=== PATIENT | female | born 1970 | race Caucasian/White ===

== ENCOUNTER → 2020-06-11 14:02 | Outpatient (BNVA) | payer BC, SELFPAY | PROVIDERS: PCP Internal Medicine; Visit Provider Internal Medicine Gastroenterology ==

== ENCOUNTER → 2020-12-06 10:09 | Outpatient (BNVA) | payer BC, SELFPAY | PROVIDERS: PCP Internal Medicine; Visit Provider Internal Medicine Gastroenterology ==

== ENCOUNTER 2020-12-13 08:20 | Outpatient (REF) | payer BC, SELFPAY ==
--- NOTE | ~2020-12-13 | MR_ITS ---
EXAMINATION: MR ABDOMEN WITHOUT AND WITH CONTRAST CLINICAL INFORMATION: History pancreatitis without necrosis. K85.90 COMPARISON: MR abdomen without and with contrast 02/23/2019 and 12/09/2018; ultrasound abdomen 05/15/2019; CT abdomen and pelvis with IV contrast 05/15/2019 and 11/26/2018. TECHNIQUE: MR abdomen was performed without and with use of 8 mL intravenous Gadavist gadolinium contrast. Postcontrast images are performed in multiphase dynamic sequences. Imaging was performed in 3 planes. FINDINGS: LUNG BASES: The visualized lung bases are unremarkable. LIVER, GALLBLADDER, AND BILIARY TREE: Liver is normal in size and smooth in contour. The parenchyma areas uniform in signal. There is some borderline decreased signal on out of phase imaging consistent with mild hepatic steatosis. There are approximately 4 subcentimeter cysts in the liver, similar to prior imaging. No enhancing lesion or lesion with delayed washout. The gallbladder is normal in size and shows no stone or sludge, wall thickening, or pericholecystic inflammatory changes. There is no intrahepatic or extrahepatic ductal dilatation. Common duct is unremarkable. PANCREAS: Normal in size and contour and signal. Normal enhancement. Pancreatic duct normal in caliber. No divisum. No mass or inflammatory changes. Small cyst suggested on prior MR exam no longer demonstrated. SPLEEN: Normal. ADRENAL GLANDS: Normal. KIDNEYS AND URETERS: The kidneys are normal in size, shape, and enhance symmetrically. No hydronephrosis. No perinephric stranding. GASTROINTESTINAL TRACT: No bowel obstruction. No ascites or fluid collection. ABDOMINAL WALL: No significant hernia is appreciated. LYMPH NODES: No lymphadenopathy. VASCULAR: Unremarkable. Abdominal aorta normal in caliber. Normal enhancement hepatic veins and portal vein and splenic vein. OSSEOUS STRUCTURES: Marrow signal normal. MR/MR abdomen wo/w con IMPRESSION: 1. Normal pancreas. No ductal dilatation or divisum. 2. No cholelithiasis or biliary ductal dilatation. 3. Borderline hepatic steatosis. Several subcentimeter cysts liver, stable.
== END 2020-12-13 08:21 | disposition home or self-care (01) ==
LOC: HO.MRI 08:20
PROVIDERS: Visit Provider Internal Medicine Gastroenterology
DX: K85.90 Acute pancreatitis without necrosis or infection, unspecified (principal)
CPT/HCPCS: 74183; A9585

== ENCOUNTER 2021-04-29 10:32 | Outpatient (REF) | payer BC, SELFPAY ==
[2021-04-29 11:09] LABS: MANUAL DIFF FLAG NO
[2021-04-29 11:34] LABS: Alanine Aminotransferase 22 U/L (0-31); Albumin Level 4.4 g/dL (3.5-5.0); Alkaline Phosphatase 67 U/L (39-117); Anion Gap 10 (12-20); Aspartate Amino Transferase 20 U/L (5-31); Bilirubin Total 0.6 mg/dL (0.0-1.0); Blood Urea Nitrogen 11 mg/dL (9-16); Calcium 9.4 mg/dL (8.4-10.2); Carbon Dioxide 28 mmol/L (22-29); Chloride 105 mmol/L (96-108); Estimated Glomerular Filt Rate > 60; Glucose Random 93 mg/dL (60-115); Lactate Dehydrogenase 137 U/L (122-220); Magnesium 2.3 mg/dL (1.6-2.6); Phosphorus 3.6 mg/dL (2.7-4.5); Potassium 4.4 mmol/L (3.3-5.1); Sodium 139 mmol/L (135-145); Total Protein 7.5 g/dL (6.5-8.0)
[2021-04-29 11:45] LABS: Vitamin D 25-OH Total 27.2 ng/mL (>30)
[2021-04-29 11:48] LABS: Basophils Percent Auto 0.6 % (0-2); Eosinophils Absolute Auto 0.2 X10*3/uL (0.0-0.4); Eosinophils Percent Auto 4.1 % (0-4); Hematocrit 41.1 % (37.0-47.0); Hemoglobin 13.5 g/dl (12.0-16.0); Imm Gran Abs Auto 0.02 X10*3/uL (0.00-0.03); Imm Gran Pct Auto 0.4 % (0.0-0.4); Lymphocytes Absolute Auto 1.4 X10*3/uL (1.2-4.9); Mean Corpuscular HGB Conc 32.8 g/dl (31.0-35.0); Mean Corpuscular Hemoglobin 30.1 pg (27.0-33.0); Mean Corpuscular Volume 91.7 fL (80.0-98.0); Mean Platelet Volume 10.3 fL (9.4-12.3); Monocytes Absolute Auto 0.4 X10*3/uL (0.1-1.2); Monocytes Percent Auto 7.8 % (2-11); Neutrophils Absolute Auto 2.9 x10*3/uL (2.0-8.3); Neutrophils Percent Auto 59.1 % (45-73); Platelet Count 313 X10*3/uL (160-400); Red Blood Count 4.48 X10*6/uL (4.20-5.50); White Blood Count 4.9 X10*3/uL (4.8-10.8)
[2021-04-29 12:01] LABS: Folate 14.4 ng/mL (> or = 4.0); Vitamin B12 774 pg/mL (200-900)
[2021-05-02 23:36] LABS: Zinc 74 mcg/dL (60-130)
[2021-05-03 10:32] LABS: Vitamin C 0.9 mg/dL (0.3-2.7)
[2021-05-03 15:25] LABS: Alpha-Tocopherol 17.2 mg/L (5.7-19.9); Beta-Gamma Tocopherol <1.0 mg/L (<=4.3)
[2021-05-03 17:26] LABS: Vitamin A 48 mcg/dL (38-98)
[2021-05-04 11:27] LABS: Vitamin B6 45.7 ng/mL (2.1-21.7)
[2021-05-05 17:57] LABS: Vitamin B5 (Pantothenic Acid) 112 ng/mL (<275)
[2021-05-06 13:41] LABS: Nicotinamide <20 ng/mL; Vit B3 - Nicotinic Acid <20 ng/mL
== END 2021-04-29 10:33 | disposition home or self-care (01) ==
LOC: HO.LAB 10:32
PROVIDERS: PCP Internal Medicine; Visit Provider Internal Medicine Gastroenterology
DX: K85.90 Acute pancreatitis without necrosis or infection, unspecified (principal); K90.9 Intestinal malabsorption, unspecified; K75.81 Nonalcoholic steatohepatitis (NASH)
CPT/HCPCS: 36415; 80053; 82180; 82306; 82550; 82607; 82746; 83615; 83735; 84100; 84207; 84446; 84590; 84591; 84630; 85025

== ENCOUNTER 2022-01-02 12:41 | Outpatient (REF) | payer BC, SELFPAY ==
--- NOTE | ~2022-01-02 | MR_ITS ---
EXAMINATION: MR ABDOMEN WITHOUT AND WITH CONTRAST CLINICAL INFORMATION: History of pancreatitis. COMPARISON: MR abdomen 12/13/2020 TECHNIQUE: MR abdomen was performed without and with use of 7.5 mL intravenous Gadavist gadolinium contrast. Postcontrast images are performed in multiphase dynamic sequences. Imaging was performed in 3 planes. FINDINGS: LUNG BASES: The visualized lung bases are unremarkable. LIVER, GALLBLADDER, AND BILIARY TREE: There is some degree of signal loss in the opposed phase dual echo images suggesting the presence of hepatic steatosis. The liver is otherwise normal in size and shape. There is redemonstration of several T2-bright avascular simple cysts, largest measuring 1.1 cm (102:22). No suspicious liver lesion. Normal gallbladder. No biliary ductal dilatation. PANCREAS: Homogeneously preserved T1-bright precontrast attenuation of the pancreas. No focal lesion. The main pancreatic duct is nondilated. No peripancreatic free fluid or fat stranding. SPLEEN: Normal. ADRENAL GLANDS: Normal. KIDNEYS AND URETERS: The kidneys are normal in size, shape, and enhance symmetrically. No hydronephrosis. No perinephric stranding. GASTROINTESTINAL TRACT: No bowel obstruction. No ascites or fluid collection. ABDOMINAL WALL: No significant hernia is appreciated. LYMPH NODES: No lymphadenopathy. VASCULAR: Unremarkable. OSSEOUS STRUCTURES: Marrow signal normal. MR/MR abdomen wo/w con IMPRESSION: Stable examination when compared to 12/13/2020 with redemonstration of borderline hepatic steatosis. Normal appearance of the pancreas.
== END 2022-01-02 12:42 | disposition home or self-care (01) ==
LOC: HO.MRI 12:41
PROVIDERS: Visit Provider Internal Medicine Gastroenterology
DX: K85.90 Acute pancreatitis without necrosis or infection, unspecified (principal)
CPT/HCPCS: 74183; A9585

== ENCOUNTER 2022-05-02 07:34 | Outpatient (REF) | payer BC, SELFPAY ==
[2022-05-02 08:11] LABS: MANUAL DIFF FLAG NO
[2022-05-02 08:25] LABS: Basophils Percent Auto 0.6 % (0-2); Eosinophils Absolute Auto 0.2 X10*3/uL (0.0-0.4); Eosinophils Percent Auto 2.3 % (0-4); Hematocrit 39.4 % (37.0-47.0); Hemoglobin 13.5 g/dl (12.0-16.0); Imm Gran Abs Auto 0.01 X10*3/uL (0.00-0.03); Imm Gran Pct Auto 0.2 % (0.0-0.4); Lymphocytes Absolute Auto 1.6 X10*3/uL (1.2-4.9); Lymphocytes Percent Auto 23.7 % (20-40); Mean Corpuscular HGB Conc 34.3 g/dl (31.0-35.0); Mean Corpuscular Hemoglobin 30.3 pg (27.0-33.0); Mean Corpuscular Volume 88.5 fL (80.0-98.0); Mean Platelet Volume 9.9 fL (9.4-12.3); Monocytes Absolute Auto 0.4 X10*3/uL (0.1-1.2); Monocytes Percent Auto 6.2 % (2-11); Neutrophils Absolute Auto 4.4 x10*3/uL (2.0-8.3); Platelet Count 306 X10*3/uL (160-400); Red Blood Count 4.45 X10*6/uL (4.20-5.50); Red Cell Distribution Width 11.9 % (11.0-16.0); White Blood Count 6.6 X10*3/uL (4.8-10.8)
[2022-05-02 09:16] LABS: Alanine Aminotransferase 19 U/L (0-31); Albumin Level 4.2 g/dL (3.5-5.0); Alkaline Phosphatase 63 U/L (39-117); Anion Gap 13 (12-20); Aspartate Amino Transferase 17 U/L (5-31); Bilirubin Total 0.5 mg/dL (0.0-1.0); Blood Urea Nitrogen 17 mg/dL (9-16); Calcium 9.6 mg/dL (8.4-10.2); Carbon Dioxide 29 mmol/L (22-29); Chloride 102 mmol/L (96-108); Cholesterol 233 mg/dL; Estimated Glomerular Filt Rate > 60; Ferritin 71 ng/mL (10-250); Glucose Random 91 mg/dL (60-115); HDL Cholesterol 40 mg/dL; Iron 74 mcg/dL (30-160); LDL Cholesterol Calculated 172 mg/dl; Magnesium 2.2 mg/dL (1.6-2.6); Percent Iron Saturation 25 % (15-50); Phosphorus 4.1 mg/dL (2.7-4.5); Potassium 4.5 mmol/L (3.3-5.1); Sodium 139 mmol/L (135-145); Total Iron Binding Capacity 293 mcg/dL (228-428); Total Protein 6.8 g/dL (6.5-8.0); Triglycerides 106 mg/dL; Unsaturated Iron Binding 219 ug/dL; Vitamin D 25-OH Total 97.2 ng/mL (>30)
[2022-05-02 09:54] LABS: Folate > 20.0 ng/mL (> or = 4.0); Vitamin B12 1216 pg/mL (200-900)
[2022-05-02 11:13] LABS: Reflex LDLD? No
[2022-05-05 11:44] LABS: Calcium, Ionized 5.3 mg/dL (4.8-5.6)
[2022-05-07 06:03] LABS: Zinc 93 mcg/dL (60-130)
[2022-05-07 06:13] LABS: Fecal Fat Qualitative Normal (Normal)
[2022-05-07 13:43] LABS: Vitamin K1 >2500 pg/mL (130-1500)
[2022-05-07 14:53] LABS: Vitamin B6 146.6 ng/mL (2.1-21.7)
[2022-05-07 16:53] LABS: Beta-Gamma Tocopherol <1.0 mg/L (<=4.3); Vitamin A 48 mcg/dL (38-98)
[2022-05-07 17:14] LABS: Nicotinamide 22 ng/mL; Vit B3 - Nicotinic Acid <20 ng/mL
[2022-05-07 17:29] LABS: Vitamin C 0.9 mg/dL (0.3-2.7)
[2022-05-07 22:19] LABS: Vitamin B5 (Pantothenic Acid) 144 ng/mL (<275)
[2022-05-08 15:48] LABS: Pancreatic Elastase-1 >500 mcg/g
[2022-05-09 04:48] LABS: Vitamin B1 37 nmol/L (8-30)
== END 2022-05-02 07:35 | disposition home or self-care (01) ==
LOC: HO.LAB 07:34
PROVIDERS: Visit Provider Internal Medicine Gastroenterology
DX: K90.9 Intestinal malabsorption, unspecified (principal); E83.52 Hypercalcemia; K85.90 Acute pancreatitis without necrosis or infection, unspecified; K75.81 Nonalcoholic steatohepatitis (NASH)
CPT/HCPCS: 36415; 80053; 80061; 82180; 82306; 82330; 82607; 82656; 82705; 82728; 82746; 83540; 83735; 84100; 84207; 84425; 84446; 84590; 84591; 84597; 84630; 85025

== ENCOUNTER 2022-07-02 09:28 | Day surgery (SDC) | payer BC, SELFPAY ==
--- NOTE | 2022-07-02 09:10 | HO.ANESPROP2 ---
HPI - Anesthesia Eval Consult details Narrative: 52 yr old female for colon svreen PMFSH Active Problems Active Problems: All Active Problems (Updated 05/09/21 @ 11:55 by Julee Pittman RN) Malabsorption (Acute) Raynaud disease (Acute) Pancreatitis (Acute) Past Medical History Medical History Anemia Arthritis Cat scratch fever Fatty liver GERD (gastroesophageal reflux disease) Hx of pancreatitis Snores Family History Family History Father Family history of high blood pressure Hx of heat stroke Mother Hx of congenital heart disease Family history of problems with anesthesia: No Surgical History Surgical History (Updated 06/26/22 @ 13:42 by Elba Olguin RN) History of colonoscopy Hx of dilation and curettage Hx of endoscopy Hx of hysterectomy Hx of rhinoplasty [place] teeth extracted History of Problems with Anesthesia: No Social History Social History Alcohol intake: never Substance Use Type: Marijuana Meds Allergies Allergy/AdvReac Type Severity Reaction Status Date / Time Penicillins [PENICILLINS] Allergy Mild ANAPHYLAXIS Verified 04/27/22 11:55 prochlorperazine Allergy Mild ANAPHYLAXIS Verified 04/27/22 11:55 [From COMPAZINE] Sulfa (Sulfonamide Allergy Mild PAIN,TACHYC Verified 04/27/22 11:55 Antibiotics) ARDIA [SULFA (SULFONAMIDE ANTIBIOTICS)] acetaminophen [From TYLENOL] Allergy Unknown HALLUCIANTI Verified 04/27/22 11:55 ONS fluconazole [From DIFLUCAN] Allergy Unknown HIVES/BREATHING Verified 04/27/22 11:55 DIFFICULTY dextromethorphan AdvReac Mild Headaches, Verified 04/27/22 11:55 [From Mucinex Cold,Flu,Sore itchy skin Throat] guaifenesin AdvReac Mild Headaches, Verified 04/27/22 11:55 [From Mucinex Cold,Flu,Sore itchy skin Throat] phenylephrine AdvReac Mild Headaches, Verified 04/27/22 11:55 [From Mucinex Cold,Flu,Sore itchy skin Throat] Active Medications: Current Medications Lactated Ringer's (Lr) 1,000 mls @ 50 mls/hr IVCONT .Q20H LCUHO Home Medications Medication Instructions Recorded Confirmed Last Taken Type loratadine 10 mg capsule (Claritin 10 mg PO DAILY 06/11/20 05/09/21 Unknown History Liqui-Gel) pyridoxine (vitamin B6) 25 mg 25 mg PO DAILY 06/11/20 05/09/21 Unknown History tablet dextroamphetamine-amphetamine 5 mg 1 tab PO BID 04/27/22 Unknown History tablet vitamin B complex (B 1 tab PO DAILY 04/27/22 Unknown History Complex-Vitamin B12 tablet) Exam Exam Date and Time: July 02, 2022 0910 Height,Weight and Vital Signs: Height 5 ft 11 in Airway Mallampati Class: II TM Dist: >3cm Neck ROM: Full Heart: rrr Lungs: cta Assessment and Plan Assessment Anesthesia Assessment: Anesthesia Plan Discussed and Chart Reviewed Final Anesthetic Review Family History of Problems with Anesthesia: No History of Problems with Anesthesia: No NPO: Yes ASA Class: III Final Preanesthetic Review: No Changes in Pt Med Stat, Meds/Allgs Chart Reviewed, Consent Obtained/Reviewed and Anes Risks/Benef Reviewed Patient Risk: Low Procedure Risk: Low Anesthetic Plan Anesthetic Plan: MAC: Disposition: Standard PACU
[2022-07-02 09:41] VITALS: BMI 22.6
[2022-07-02 09:47] VITALS: BP 105/62; PULSE 89; RESP 15; TEMP 36.6; O2SAT 97
--- NOTE | 2022-07-02 10:01 | MHC.SHP ---
Pre-Procedural Eval Section A Date of Service: 07/02/22 Section B Chief Complaint: hx of colon polyps Relevant Family History (Specify if Yes): No Relevant Social History: None Present Medications: see Short Stay Collaborative assessment Medical History: Significant History (Anemia Arthritis Cat scratch fever Fatty liver GERD (gastroesophageal reflux disease) Hx of pancreatitis Snores) History of Previous Operations: Relevant previous surgery/procedure and date(s) (History of colonoscopy Hx of dilation and curettage Hx of endoscopy Hx of hysterectomy Hx of rhinoplasty [place] teeth extracted) Allergies: Allergies Allergy/AdvReac Type Severity Reaction Status Date / Time Penicillins [PENICILLINS] Allergy Mild ANAPHYLAXIS Verified 07/02/22 09:37 prochlorperazine Allergy Mild ANAPHYLAXIS Verified 07/02/22 09:37 [From COMPAZINE] Sulfa (Sulfonamide Allergy Mild PAIN,TACHYC Verified 07/02/22 09:37 Antibiotics) ARDIA [SULFA (SULFONAMIDE ANTIBIOTICS)] acetaminophen [From TYLENOL] Allergy Unknown HALLUCIANTI Verified 07/02/22 09:37 ONS fluconazole [From DIFLUCAN] Allergy Unknown HIVES/BREATHING Verified 07/02/22 09:37 DIFFICULTY Review of Systems Sugical H&P ROS: Negative: Constitution, Cardiovascular, Respiratory, Neurological, Psychiatric, Hem-Onc, Allergic/Immunologic, Gastrointestinal, Genitourinary, Musculoskeletal, Integumentary, Endocrine and Eyes/Ears/Nose/Throat Exam Surgical H&P Exam: Normal: HEENT, Normal: Heart, Normal: Lungs, Normal: Extremities, Normal: Abdomen, Normal: Skin and Normal: Neurological Plan Diagnosis/Plan: Unchanged I have reviewed the history and physical and performed a pertinent physical examination on my patient. No changes have occurred unless specified. Time Spent With Patient Time: Total time managing care of this patient today ____ minutes.
[2022-07-02] MEDS: Lactated Ringers 1,000 ML 50 ML IVCONT (10:04)
--- NOTE | 2022-07-02 10:08 | P.OP_ITS ---
Operative Note Operative Note Date of Service: 07/02/22 Narrative: Operative Information Procedure Description: Colonoscopy Indication: hx of polyps Anesthesia: MAC COLONOSCOPY Instrument: Olympus variable stiffness pediatric scope 190L Colonoscopy Monitoring: Vital signs and clinical assessment, continuous EKG monitoring, Pulse oximetry, Carbon Dioxide monitoring and blood pressure monitoring were done throughout the procedure. Colon withdrawal time was 7 minutes. Procedure: The patient was placed in the left lateral decubitis position and pre-procedure medications were administered. After a digital rectal examination of the ano-rectum, the video colonoscope was inserted into the rectum and advanced through the colon to the cecum/TI. The colonoscope was slowly withdrawn in a retrograde panoramic fashion and the colon mucosa was carefully examined including a retroflexed view of the rectum. Findings and interventions are described below. Procedure Difficulty: easy Findings: Terminal Ileum-normal Cecum:normal Ascending Colon: normal Transverse Colon -normal Descending Colon:normal Sigmoid Colon: normal Rectum: Retroflexion with small internal hemorrhoids, grade I, mucosal edema noted, bx taken Anorectum - normal Colon preparation: [place] Bowel Preparation Scale Right colon; 2 Transverse colon: 3 Left colon; 3 (0 = Unprepared colon segment with mucosa not seen due to solid stool that cannot be cleared. 1 = Portion of mucosa of the colon segment seen, but other areas of the colon segment not well seen due to staining, residual stool and/or opaque liquid. 2 = Minor amount of residual staining, small fragments of stool and/or opaque liquid, but mucosa of colon segment seen well. 3 = Entire mucosa of colon segment seen well with no residual staining, small fragments of stool or opaque liquid) Impression and Post Procedure Diagnosis: rectal mucosa edema, may be due to prep artifact small internal hemorrhoids Plan: High fiber diet leaflet Avoid straining at stool, epsom salts and sitz bath, anusol supps or cream Repeat Colonoscopy in 5 years due to hx of polyps or earlier if clinically indicated Above findings were reviewed with the patient and relevant handouts were provided if indicated.
[2022-07-02 10:48] VITALS: BP 98/49; PULSE 69; RESP 17; O2SAT 100
[2022-07-02 11:03] VITALS: BP 99/61; PULSE 77; RESP 18; TEMP 36.3; O2SAT 98
== END 2022-07-02 11:30 | disposition home or self-care (01) ==
PROVIDERS: PCP Internal Medicine; Visit Provider Internal Medicine Gastroenterology
PROC: 0DJD8ZZ Inspection of Lower Intestinal Tract, Via Natural or Artificial Opening Endoscopic (ICD-10-PCS; CPT 45378; principal; 2022-07-02 10:40)
DX: Z12.11 Encounter for screening for malignant neoplasm of colon (principal); Z86.010 Personal history of colon polyps; K62.89 Other specified diseases of anus and rectum; K64.0 First degree hemorrhoids; K76.0 Fatty (change of) liver, not elsewhere classified; K90.9 Intestinal malabsorption, unspecified; K85.90 Acute pancreatitis without necrosis or infection, unspecified; K21.9 Gastro-esophageal reflux disease without esophagitis; D64.9 Anemia, unspecified; K44.9 Diaphragmatic hernia without obstruction or gangrene; M19.90 Unspecified osteoarthritis, unspecified site; A28.1 Cat-scratch disease; Z79.899 Other long term (current) drug therapy; Z88.0 Allergy status to penicillin; Z88.2 Allergy status to sulfonamides; Z88.8 Allergy status to other drugs, medicaments and biological substances
CPT/HCPCS: 45380; 88305

== ENCOUNTER → 2022-07-17 09:20 | Outpatient (BNVA) | payer BC, SELFPAY | PROVIDERS: PCP Internal Medicine; Visit Provider Internal Medicine Gastroenterology | DX: Z13.89 Encounter for screening for other disorder (principal) ==

== ENCOUNTER 2023-01-01 09:34 | Outpatient (REF) | payer BC, SELFPAY ==
[2023-01-01 11:25] LABS: MANUAL DIFF FLAG NO
[2023-01-01 11:51] LABS: Basophils Absolute Auto 0.1 X10*3/uL (0.0-0.2); Basophils Percent Auto 0.8 % (0-2); Eosinophils Absolute Auto 0.2 X10*3/uL (0.0-0.4); Eosinophils Percent Auto 2.7 % (0-4); Hematocrit 40.1 % (37.0-47.0); Hemoglobin 13.5 g/dl (12.0-16.0); Imm Gran Abs Auto 0.03 X10*3/uL (0.00-0.03); Imm Gran Pct Auto 0.5 % (0.0-0.4); Lymphocytes Absolute Auto 1.5 X10*3/uL (1.2-4.9); Lymphocytes Percent Auto 22.1 % (20-40); Mean Corpuscular HGB Conc 33.7 g/dl (31.0-35.0); Mean Corpuscular Hemoglobin 30.3 pg (27.0-33.0); Mean Corpuscular Volume 90.1 fL (80.0-98.0); Mean Platelet Volume 10.3 fL (9.4-12.3); Monocytes Absolute Auto 0.4 X10*3/uL (0.1-1.2); Monocytes Percent Auto 6.4 % (2-11); Neutrophils Absolute Auto 4.5 x10*3/uL (2.0-8.3); Neutrophils Percent Auto 67.5 % (45-73); Platelet Count 300 X10*3/uL (160-400); Red Blood Count 4.45 X10*6/uL (4.20-5.50); Red Cell Distribution Width 11.8 % (11.0-16.0); White Blood Count 6.6 X10*3/uL (4.8-10.8)
[2023-01-01 12:42] LABS: Alanine Aminotransferase 38 U/L (0-31); Albumin Level 4.2 g/dL (3.5-5.0); Alkaline Phosphatase 63 U/L (39-117); Anion Gap 10 (12-20); Aspartate Amino Transferase 21 U/L (5-31); Bilirubin Total 0.4 mg/dL (0.0-1.0); Blood Urea Nitrogen 17 mg/dL (9-16); Calcium 9.7 mg/dL (8.4-10.2); Carbon Dioxide 27 mmol/L (22-29); Chloride 105 mmol/L (96-108); Estimated Glomerular Filt Rate > 60; Glucose Random 95 mg/dL (60-115); Magnesium 2.3 mg/dL (1.6-2.6); Potassium 4.3 mmol/L (3.3-5.1); Sodium 138 mmol/L (135-145); Total Protein 7.3 g/dL (6.5-8.0)
[2023-01-01 12:45] LABS: Ferritin 100 ng/mL (10-250); Vitamin D 25-OH Total 55.7 ng/mL (>30)
[2023-01-01 13:53] LABS: Folate 11.9 ng/mL (> or = 4.0); Vitamin B12 1143 pg/mL (200-900)
[2023-01-05 09:08] LABS: Calcium, Ionized 5.2 mg/dL (4.7-5.5)
[2023-01-05 21:14] LABS: Zinc 70 mcg/dL (60-130)
[2023-01-06 15:24] LABS: Vitamin B6 62.9 ng/mL (2.1-21.7)
[2023-01-07 11:48] LABS: Nicotinamide 23 ng/mL; Vit B3 - Nicotinic Acid 26 ng/mL
[2023-01-07 14:34] LABS: Vitamin A 50 mcg/dL (38-98)
[2023-01-07 14:49] LABS: Vitamin B1 12 nmol/L (8-30)
[2023-01-07 17:28] LABS: Alpha-Tocopherol 15.6 mg/L (5.7-19.9); Beta-Gamma Tocopherol <1.0 mg/L (<=4.3)
[2023-01-07 19:20] LABS: Vitamin K1 404 pg/mL (130-1500)
== END 2023-01-01 09:35 | disposition home or self-care (01) ==
LOC: HO.LAB 09:34
PROVIDERS: PCP Internal Medicine; Visit Provider Internal Medicine Gastroenterology
DX: K75.81 Nonalcoholic steatohepatitis (NASH) (principal); K90.9 Intestinal malabsorption, unspecified; K85.90 Acute pancreatitis without necrosis or infection, unspecified; I73.00 Raynaud's syndrome without gangrene; E83.52 Hypercalcemia
CPT/HCPCS: 36415; 80053; 82180; 82306; 82330; 82607; 82728; 82746; 83735; 84207; 84425; 84446; 84590; 84591; 84597; 84630; 85025

== ENCOUNTER → 2023-01-01 09:34 | Outpatient (AMB) | payer BC, SELFPAY ==
[2023-01-01 09:38] VITALS: BP 115/56; PULSE 75; BMI 22.4
--- NOTE | 2023-01-01 09:38 | A.OFFVIS_ITS ---
Intake Vital Signs 01/01/23 09:38 Height 5 ft 11 in Weight 160 lb 14.999 oz BMI 22.4 BP 115/56 L Blood Pressure Location Lt brachial Position Sitting Pulse 75 Intake Visit Reasons: 6 month follow up Intake Note: Elizabeth presents in the office as a 6 month follow up. CC: She states that she is not having concerns just things that have been ongoing. Customer Program Manager Required: No Allergies Penicillins [PENICILLINS] Allergy (Mild, Verified 01/01/23 09:41) ANAPHYLAXIS prochlorperazine [From COMPAZINE] Allergy (Mild, Verified 01/01/23 09:41) ANAPHYLAXIS Sulfa (Sulfonamide Antibiotics) [SULFA (SULFONAMIDE ANTIBIOTICS)] Allergy (Mild, Verified 01/01/23 09:41) PAIN,TACHYCARDIA acetaminophen [From TYLENOL] Allergy (Unknown, Verified 01/01/23 09:41) HALLUCIANTIONS fluconazole [From DIFLUCAN] Allergy (Unknown, Verified 01/01/23 09:41) HIVES/BREATHING DIFFICULTY HPI 6 month follow up HPI Details 52 yr old f w/ hx of hiatal hernia and what she thought was celiac disease (based on sx and FH) here for f/u? ? ? RECAP: ? She had severe upper abdoo pain, 11/26/18 and went to the ED had mild raised lipase and CT with acute interstitial pancreatitis ? she said on retrospect she has had these attacks of abdominal pain maybe 1-2 times/year ? she has baseline discomfort most days, craping nad bloating after eating, with some dizziness and gassiness. she has nausea, no vomiting ? she also has alternating diarrhea and constipation, most recently has had oily appearing bowel habits ? she has had joint pains, with swollen fingers at times ? she had colonosopy 2011 due to chronic digestive compalints per her, and it was normal per her, she had EGD same time ? she is on gluten free diet, appetite variable, weight stable. she feels creon helps a lot of her GI sx, trental also helps ? she had EGD 12/2018 with mild esophagitis, small hiata hernai, bx neg for celiac ? labs neg for celiac serology, normal igg4 ? MRI_ 11/2018- no panc divisum, no stones, ?panc stricture, mild p ancreatitis ? Gene testing--neg for PRSS, CTFR, spink ? colonoscopy 03/2019---x 2 polyps removed, random bx neg, internal hemorrhoids ? she was referred for Mr defecography due to incomplete evacuation but couldn do it she had cat scratch fever and was recovering from this still not 100% but was getting better she thinks azithromycin helped her stomach as well she had been taking b6 supplement she is still taking trental and creon which she finds really helps her ?? ? I suspected she had raynauds, she felt trental was helping this Rept MRI 12/2021- nml pancreas, hepatic steatosis she had covid at beginning of February and she had low pulse ox, made her really sick, but she improved without paxlovid I checked her vit levels and several were high so asked to cut back on these slick Vit E and K She also had repeat colonoscopy: no polyps but some congestion in rectum, bx with prominent lymphoid aggregates ?INTERIM: stressed, daughter is in [place] stuck in the fire zone, but she is ok for the moment she has good appetite she has been more active bowel motions slightly less regular, stools maybe little more foul smelling if eats things with more fat and sodium stools coming out at right angle she has less tenesmus, but still has rectal discomfort --low grade, not as sharp as before she tried wine and she felt she got low level pancreatitis, didn't have to go to hospital for this she stopped taking adderall due to anxiety caused by it EXAM: GENERAL: The patient is well developed and nontoxic. VITAL SIGNS:see workflow HEENT: Nonicteric sclerae, PERRLA, EOMI. Oropharynx red. Moist mucous membranes. Conjunctivae appear well perfused. No thyroid mass. CHEST: Chest wall is nontender. HEART: Regular rate and rhythm without murmurs. LUNGS: Clear to auscultation bilaterally. ABDOMEN: Soft, positive bowel sounds, nontender, no organomegaly.no flank tenderness SKIN: No rash, no excessive bruising, petechiae, or purpura. NEUROLOGIC: Cranial nerves II-XII intact without motor/sensory deficit. Assessments ? 1. Pancreatitis-idiopathic, worreid about malabsorption--actually had high levels of vits had to cut down on this--needs recheck 2. subclinical proctitis like symptoms PLAN: 1/ colonoscopy repeat 5 years 2/ ?she will decide on trial of mesalamine supps or not--still undecided--will check fecal lactoferrin as might help her decide 3/ recheck labs incl nutrient levels 4.- she will forward me rast levels from prior providers 5/ repeat mri next yr for pancreas assessment PFSH Medical History Anemia Arthritis Borderline high cholesterol Cat scratch fever Fatty liver GERD (gastroesophageal reflux disease) Hx of pancreatitis Snores Surgical History History of colonoscopy Hx of dilation and curettage Hx of endoscopy Hx of hysterectomy Hx of rhinoplasty [place] teeth extracted Family History Father Family history of high blood pressure Hx of heat stroke Mother Hx of congenital heart disease Social History Alcohol intake: never Patient Tobacco Use Status: Never used Tobacco Substance Use Type: Marijuana Physical Exam Vital Signs: Last Vital Signs Pulse 75 01/01/23 09:38 BP 115/56 L 01/01/23 09:38 BMI result Body Mass Index 22.4 Assessment & Plan Assessment & Plan (1) Malabsorption: Code(s): K90.9 - Intestinal malabsorption, unspecified Qualifiers: Intestinal malabsorption type: unspecified Qualified Code(s): K90.9 - Intestinal malabsorption, unspecified (2) Pancreatitis: Code(s): K85.90 - Acute pancreatitis without necrosis or infection, unspecified Qualifiers: Chronicity: chronic (3) Raynaud disease: Code(s): I73.00 - Raynaud's syndrome without gangrene Qualifiers: Raynaud?s-associated gangrene presence: without gangrene Qualified Code(s): I73.00 - Raynaud's syndrome without gangrene Orders: Orders Calcium, Ionized Today E83.52 - Hypercalcemia, I73.00 - Raynaud's syndrome without gangrene, K85.90 - Acute pancreatitis without necrosis or infection, unspecified, K90.9 - Intestinal malabsorption, unspecified Vitamin B12 and Folate Today I73.00 - Raynaud's syndrome without gangrene, K85.90 - Acute pancreatitis without necrosis or infection, unspecified, K90.9 - Intestinal malabsorption, unspecified Comprehensive Met. Panel Today I73.00 - Raynaud's syndrome without gangrene, K75.81 - Nonalcoholic steatohepatitis ([place]), K85.90 - Acute pancreatitis without necrosis or infection, unspecified, K90.9 - Intestinal malabsorption, unspecified Ferritin Today I73.00 - Raynaud's syndrome without gangrene, K85.90 - Acute pancreatitis without necrosis or infection, unspecified, K90.9 - Intestinal malabsorption, unspecified Magnesium Today I73.00 - Raynaud's syndrome without gangrene, K85.90 - Acute pancreatitis without necrosis or infection, unspecified, K90.9 - Intestinal malabsorption, unspecified Vitamin B3 (Niacin) Today I73.00 - Raynaud's syndrome without gangrene, K85.90 - Acute pancreatitis without necrosis or infection, unspecified, K90.9 - Intestinal malabsorption, unspecified Vitamin E Today I73.00 - Raynaud's syndrome without gangrene, K85.90 - Acute pancreatitis without necrosis or infection, unspecified, K90.9 - Intestinal malabsorption, unspecified Vitamin A Today I73.00 - Raynaud's syndrome without gangrene, K85.90 - Acute pancreatitis without necrosis or infection, unspecified, K90.9 - Intestinal malabsorption, unspecified Vitamin B1 Today I73.00 - Raynaud's syndrome without gangrene, K85.90 - Acute pancreatitis without necrosis or infection, unspecified, K90.9 - Intestinal malabsorption, unspecified Vitamin B5 (Pantothenic Acid) Today I73.00 - Raynaud's syndrome without gangrene, K85.90 - Acute pancreatitis without necrosis or infection, unspecified, K90.9 - Intestinal malabsorption, unspecified Vitamin B6 Today I73.00 - Raynaud's syndrome without gangrene, K85.90 - Acute pancreatitis without necrosis or infection, unspecified, K90.9 - Intestinal malabsorption, unspecified Vitamin C Today I73.00 - Raynaud's syndrome without gangrene, K85.90 - Acute pancreatitis without necrosis or infection, unspecified, K90.9 - Intestinal malabsorption, unspecified Vitamin D 25-OH Total Today I73.00 - Raynaud's syndrome without gangrene, K85.90 - Acute pancreatitis without necrosis or infection, unspecified, K90.9 - Intestinal malabsorption, unspecified Vitamin K1 Today I73.00 - Raynaud's syndrome without gangrene, K85.90 - Acute pancreatitis without necrosis or infection, unspecified, K90.9 - Intestinal malabsorption, unspecified Zinc Today I73.00 - Raynaud's syndrome without gangrene, K85.90 - Acute pancreatitis without necrosis or infection, unspecified, K90.9 - Intestinal malabsorption, unspecified Complete Blood Count Auto Diff Today I73.00 - Raynaud's syndrome without gangrene, K85.90 - Acute pancreatitis without necrosis or infection, unspecified, K90.9 - Intestinal malabsorption, unspecified Lactoferrin, Fecal, Quant. Today K51.50 - Left sided colitis without complications Coding Level of Care Code Est Pt Level 3 (95145) Diagnoses Malabsorption K90.9 Intestinal malabsorption type: unspecified Pancreatitis K85.90 Chronicity: chronic Raynaud disease I73.00 Raynaud?s-associated gangrene presence: without gangrene
== END ==
PROVIDERS: PCP Internal Medicine; Visit Provider Internal Medicine Gastroenterology
DX: K90.9 Intestinal malabsorption, unspecified (principal); K85.90 Acute pancreatitis without necrosis or infection, unspecified; I73.00 Raynaud's syndrome without gangrene
CPT/HCPCS: 99213

== ENCOUNTER 2023-01-07 14:38 | Outpatient (REF) | payer BC, SELFPAY ==
[2023-01-13 16:32] LABS: Lactoferrin, Fecal, Quant. <6.25 mcg/mL (<7.25)
== END 2023-01-07 14:39 | disposition home or self-care (01) ==
LOC: HO.LNP 14:38
PROVIDERS: Visit Provider Internal Medicine Gastroenterology
DX: K51.50 Left sided colitis without complications (principal)
CPT/HCPCS: 83631

== ENCOUNTER 2023-07-02 10:00 | Outpatient (REF) | payer OTHER, SELFPAY ==
[2023-07-02 11:11] LABS: MANUAL DIFF FLAG NO
[2023-07-02 12:18] LABS: Appearance Urine Clear; Color Urine Yellow; Glucose Urine UA Negative (Negative); Leukocyte Esterase Urine Negative (Negative); Nitrite Urine Negative (Negative); Specific Gravity - Urine 1.015 (1.005-1.025); Urine Blood Negative (Negative); Urine Ketones Negative (Negative); Urine Protein Negative (Neg-Trace)
[2023-07-02 12:22] LABS: Basophils Percent Auto 0.6 % (0-2); Eosinophils Absolute Auto 0.1 X10*3/uL (0.0-0.4); Eosinophils Percent Auto 1.5 % (0-4); Imm Gran Abs Auto 0.02 X10*3/uL (0.00-0.03); Imm Gran Pct Auto 0.3 % (0.0-0.4); Lymphocytes Absolute Auto 1.4 X10*3/uL (1.2-4.9); Lymphocytes Percent Auto 21.3 % (20-40); Mean Corpuscular HGB Conc 33.3 g/dl (31.0-35.0); Mean Corpuscular Volume 90.1 fL (80.0-98.0); Mean Platelet Volume 10.7 fL (9.4-12.3); Monocytes Absolute Auto 0.5 X10*3/uL (0.1-1.2); Monocytes Percent Auto 7.3 % (2-11); Neutrophils Absolute Auto 4.6 x10*3/uL (2.0-8.3); Platelet Count 301 X10*3/uL (160-400); Red Blood Count 4.33 X10*6/uL (4.20-5.50); Red Cell Distribution Width 11.9 % (11.0-16.0); White Blood Count 6.7 X10*3/uL (4.8-10.8)
[2023-07-02 12:45] LABS: Rheumatoid Factor 15.8 IU/mL (<15.0)
[2023-07-02 12:54] LABS: C Reactive Protein < 0.10 mg/dL (< or = 0.50)
[2023-07-02 13:01] LABS: Erythrocyte Sedimentation Rate 9 MM/HR (0-20)
[2023-07-02 13:15] LABS: Ferritin 61 ng/mL (10-250); TSH reflex Free T4 0.68 uIU/mL (0.32-4.0)
[2023-07-02 13:17] LABS: Folate 8.6 ng/mL (> or = 4.0); Vitamin B12 998 pg/mL (200-900)
[2023-07-03 10:28] LABS: Triiodothyronine T3 Free 3.5 pg/mL (2.3-4.2)
[2023-07-05 11:39] LABS: IgA 178 mg/dL (47-310); IgG 1234 mg/dL (600-1640); IgM 144 mg/dL (50-300)
[2023-07-05 14:29] LABS: Ceruloplasmin 24 mg/dL (18-53)
[2023-07-05 14:44] LABS: Immunoglobulin G Subclass 1 768 mg/dL (382-929); Immunoglobulin G Subclass 2 474 mg/dL (241-700); Immunoglobulin G Subclass 3 32 mg/dL (22-178); Immunoglobulin G Subclass 4 8.5 mg/dL (4-86); Immunoglobulin G Total 1137 mg/dL (600-1640)
[2023-07-05 23:13] LABS: Immunoglobulin E 18 kU/L (<OR=114)
[2023-07-07 09:18] LABS: Triiodothyronine T3 Reverse 10 ng/dL (8-25)
[2023-07-08 06:23] LABS: Aldolase 3.3 U/L (<=8.1)
[2023-07-09 16:23] LABS: Vitamin C 0.3 mg/dL (0.3-2.7)
[2023-07-11 19:23] LABS: Vitamin B5 (Pantothenic Acid) 46 ng/mL (<275)
== END 2023-07-02 10:01 | disposition home or self-care (01) ==
LOC: HO.LAB 10:00
PROVIDERS: PCP Internal Medicine; Visit Provider Internal Medicine Gastroenterology
DX: K85.90 Acute pancreatitis without necrosis or infection, unspecified (principal); D64.9 Anemia, unspecified; R53.83 Other fatigue; I73.00 Raynaud's syndrome without gangrene; D84.9 Immunodeficiency, unspecified; K90.9 Intestinal malabsorption, unspecified; R19.7 Diarrhea, unspecified; R30.0 Dysuria
CPT/HCPCS: 36415; 81003; 82085; 82180; 82390; 82550; 82607; 82728; 82746; 82784; 82785; 83520; 84443; 84481; 84482; 84591; 85025; 85652; 86140; 86431

== ENCOUNTER 2023-07-02 10:00 | Outpatient (AMB) | payer OTHER, SELFPAY ==
[2023-07-02 10:09] VITALS: BP 130/62; PULSE 88; BMI 22.7
--- NOTE | 2023-07-02 10:09 | A.OFFVIS_ITS ---
Intake Vital Signs 07/02/23 10:09 Height 5 ft 11 in Weight 163 lb BMI 22.7 BP 130/62 Blood Pressure Location Lt brachial Position Sitting Pulse 88 Intake Visit Reasons: 6 month follow up Intake Note: Patient follow up Patient cc: abdominal pain, acid reflex, diarrhea, fatigue and dizziness due COVID. 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 Required: No Accompanied by: Self / Same As Patient Allergies Penicillins [PENICILLINS] Allergy (Mild, Verified 07/02/23 10:10) ANAPHYLAXIS prochlorperazine [From COMPAZINE] Allergy (Mild, Verified 07/02/23 10:10) ANAPHYLAXIS Sulfa (Sulfonamide Antibiotics) [SULFA (SULFONAMIDE ANTIBIOTICS)] Allergy (Mild, Verified 07/02/23 10:10) PAIN,TACHYCARDIA acetaminophen [From TYLENOL] Allergy (Unknown, Verified 07/02/23 10:10) HALLUCIANTIONS fluconazole [From DIFLUCAN] Allergy (Unknown, Verified 07/02/23 10:10) HIVES/BREATHING DIFFICULTY HPI 6 month follow up HPI Details 53 yr old f w/ hx of hiatal hernia and w hat she thought was celiac disease (based on sx and FH) here for f/u RECAP: She had severe upper abdoo pain, 11/26/18 and went to the ED had mild raised lipase and CT with acute interstitial pancreatitis she said on retrospect she has had these attacks of abdominal pain maybe 1-2 times/year she has baseline discomfort most days, craping nad bloating after eating, with some dizziness and gassiness. she has nausea, no vomiting she also has alternating diarrhea and constipation, most recently has had oily appearing bowel habits she has had joint pains, with swollen fingers at times she had colonosopy 2011 due to chronic digestive compalints per her, and it was normal per her, she had EGD same time she is on gluten free diet, appetite variable, weight stable. she feels creon helps a lot of her GI sx, trental also helps she had EGD 12/2018 with mild esophagitis, small hiata hernai, bx neg for celiac labs neg for celiac serology, normal igg4 MRI_ 11/2018- no panc divisum, no stones, ?panc stricture, mild pancreatitis Gene testing--neg for PRSS, CTFR, spink colonoscopy 03/2019---x 2 polyps removed, random bx neg, internal hemorrhoids she was referred for Mr defecography due to incomplete evacuation but couldn do it she had cat scratch fever and was recovering from this still not 100% but was getting better she thinks azithromycin helped her stomach as well she had been taking b6 supplement she is still taking trental and creon which she finds really helps her I suspected she had raynauds, she felt trental was helping this Rept MRI 12/2021- nml pancreas, hepatic steatosis she had covid at beginning of February and she had low pulse ox, made her really sick, but she improved without paxlovid I checked her vit levels and several were high so asked to cut back on these slick Vit E and K She also had repeat colonoscopy: no polyps but some congestion in rectum, bx with prominent lymphoid aggregates INTERIM: daughter still over in [facility] had been 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 VITAL SIGNS:see workflow HEENT: Nonicteric sclerae, PERRLA, EOMI. Oropharynx red. Moist mucous membranes. Conjunctivae appear well perfused. No thyroid mass. CHEST: Chest wall is nontender. HEART: Regular rate and rhythm without murmurs. LUNGS: Clear to auscultation bilaterally. ABDOMEN: Soft, positive bowel sounds, tender left flank, no organomegaly. SKIN: No rash, no excessive bruising, petechiae, or purpura. NEUROLOGIC: Cranial nerves II-XII intact without motor/sensory deficit. psych: nml affect Assessments 1. Pancreatitis-idiopathic, 2. recurrent covid, muscle aches pain, m alaise, could be post viral fatigue, ddx: inflammatory or other myalgia PLAN: 1/ colonoscopy repeat 5 years 2/ rechekc labs, incl CK and Ig 3/ US abdo 4/ can try tumeric and quercetin due to anti oxidant and anti inflammatroy effects [facility] Medical History (Updated 07/02/23 @ 10:35 by Kamar Wylie MD) Borderline high cholesterol Cat scratch fever Arthritis Anemia Hx of pancreatitis Fatty liver Snores GERD (gastroesophageal reflux disease) Surgical History Hx of rhinoplasty Hx of hysterectomy [place] teeth extracted Hx of dilation and curettage Hx of endoscopy History of colonoscopy Family History Father Family history of high blood pressure Hx of heat stroke Mother Hx of congenital heart disease Social History Alcohol intake: never Patient Tobacco Use Status: Never used Tobacco Substance Use Type: Marijuana Physical Exam Vital Signs: Last Vital Signs Pulse 88 07/02/23 10:09 BP 130/62 07/02/23 10:09 BMI result Body Mass Index 22.7 Assessment & Plan Assessment & Plan (1) Pancreatitis: Code(s): K85.90 - Acute pancreatitis without necrosis or infection, unspecified Qualifiers: Chronicity: chronic Plan: Assessments 1. Pancreatitis-idiopathic, 2. recurrent covid, muscle aches pain, malaise, could be post viral fatigue, ddx: inflammatory or other myalgia PLAN: 1/ colonoscopy repeat 5 years 2/ rechekc labs, incl CK and Ig 3/ US abdo 4/ can try tumeric and quercetin due to anti oxidant and anti inflammatroy effects (2) Anemia: Code(s): D64.9 - Anemia, unspecified Plan: Assessments 1. Pancreatitis-idiopathic, 2. recurrent covid, muscle aches pain, malaise, could be post viral fatigue, dd x: inflammatory or other myalgia PLAN: 1/ colonoscopy repeat 5 years 2/ rechekc labs, incl CK and Ig 3/ US abdo 4/ can try tumeric and quercetin due to anti oxidant and anti inflammatroy effects (3) Fatigue: Code(s): R53.83 - Other fatigue Plan: Assessments 1. Pancreatitis-idiopathic, 2. recurrent covid, muscle aches pain, malaise, could be post viral fatigue, ddx: inflammatory or other myalgia PLAN: 1/ colonoscopy repeat 5 years 2/ rechekc labs, incl CK and Ig 3/ US abdo 4/ can try tumeric and quercetin due to anti oxidant and anti inflammatroy effects (4) Left flank pain: Code(s): R10.9 - Unspecified abdominal pain Plan: Assessments 1. Pancreatitis-idiopathic, 2. recurrent covid, muscle aches pain, malaise, could be post viral fatigue, ddx: inflammatory or other myalgia PLAN: 1/ colonoscopy repeat 5 years 2/ rechekc labs, incl CK and Ig 3/ US abdo 4/ can try tumeric and quercetin due to anti oxidant and anti inflammatroy effects (5) Raynaud disease: Code(s): I73.00 - Raynaud's syndrome without gangrene Qualifiers: Raynaud?s-associated gangrene presence: without gangrene Qualified Code(s): I73.00 - Raynaud's syndrome without gangrene Plan: Assessments 1. Pancreatitis-idiopathic, 2. recurrent covid, muscle aches pain, malaise, could be post viral fatigue, ddx: inflammatory or other myalgia PLAN: 1/ colonoscopy repeat 5 years 2/ rechekc labs, incl CK and Ig 3/ US abdo 4/ can try tumeric and quercetin due to anti oxidant and anti inflammatroy effects (6) Immunodeficiency: Code(s): D84.9 - Immunodeficiency, unspecified Plan: Assessments 1. Pancreatitis-idiopathic, 2. recurrent covid, muscle aches pain, malaise, could be post viral fatigue, ddx: inflammatory or other myalgia PLAN: 1/ colonoscopy repeat 5 years 2/ rechekc labs, incl CK and Ig 3/ US abdo 4/ can try tumeric and quercetin due to anti oxidant and anti inflammatroy effects Orders: Orders Erythrocyte Sedimentation Rate Today D64.9 - Anemia, unspecified, K85.90 - Acute pancreatitis without necrosis or infection, unspecified, R53.83 - Other fatigue Vitamin B12 and Folate Today D64.9 - Anemia, unspecified, K85.90 - Acute pancreatitis without necrosis or infection, unspecified, R53.83 - Other fatigue Triiodothyronine T3 Free Today D64.9 - Anemia, unspecified, K85.90 - Acute pancreatitis without necrosis or infection, unspecified, R53.83 - Other fatigue Tryptase Today D64.9 - Anemia, unspecified, K85.90 - Acute pancreatitis without necrosis or infection, unspecified, R19.7 - Diarrhea, unspecified, R53.83 - Other fatigue Aldolase Today D64.9 - Anemia, unspecified, K85.90 - Acute pancreatitis without necrosis or infection, unspecified, R53.83 - Other fatigue Rheumatoid Factor Today D64.9 - Anemia, unspecified, K85.90 - Acute pancreatitis without necrosis or infection, unspecified, R53.83 - Other fatigue Immunoglobulin E Today D84.9 - Immunodeficiency, unspecified, I73.00 - Raynaud's syndrome without gangrene, K85.90 - Acute pancreatitis without necrosis or infection, unspecified C Reactive Protein Today D64.9 - Anemia, unspecified, K85.90 - Acute pancreatitis without necrosis or infection, unspecified, R53.83 - Other fatigue Complete Blood Count Auto Diff Today D64.9 - Anemia, unspecified, K85.90 - Acute pancreatitis without necrosis or infection, unspecified, R53.83 - Other fatigue Ceruloplasmin Today D64.9 - Anemia, unspecified, K85.90 - Acute pancreatitis without necrosis or infection, unspecified, R53.83 - Other fatigue Ferritin Today D64.9 - Anemia, unspecified, K85.90 - Acute pancreatitis without necrosis or infection, unspecified, R53.83 - Other fatigue TSH reflex Free T4 Today D64.9 - Anemia, unspecified, K85.90 - Acute pancreatitis without necrosis or infection, unspecified, R53.83 - Other fatigue UA CC w/rflx Micro + Cult Today D64.9 - Anemia, unspecified, K85.90 - Acute pancreatitis without necrosis or infection, unspecified, R30.0 - Dysuria, R53.83 - Other fatigue Triiodothyronine T3 Reverse Today D64.9 - Anemia, unspecified, K85.90 - Acute pancreatitis without necrosis or infection, unspecified, R53.83 - Other fatigue Creatine Kinase Total Today D64.9 - Anemia, unspecified, K85.90 - Acute pancreatitis without necrosis or infection, unspecified, R53.83 - Other fatigue US abdomen complete Today D64.9 - Anemia, unspecified, R10.9 - Unspecified ab dominal pain, R53.83 - Other fatigue Immunoglobulin G Subclasses Today D84.9 - Immunodeficiency, unspecified, I73.00 - Raynaud's syndrome without gangrene, K85.90 - Acute pancreatitis without necrosis or infection, unspecified Immunoglobulins,IgG IgA IgM Today D84.9 - Immunodeficiency, unspecified, I73.00 - Raynaud's syndrome without gangrene, K85.90 - Acute pancreatitis without necrosis or infection, unspecified Coding Level of Care Code Est Pt Level 4 (40051) Diagnoses Pancreatitis K85.90 Chronicity: chronic Anemia D64.9 Fatigue R53.83 Left flank pain R10.9 Raynaud's disease without gangrene I73.00 Raynaud?s-associated gangrene presence: without gangrene Immunodeficiency D84.9
== END 2023-07-02 10:43 | disposition home or self-care (01) ==
PROVIDERS: PCP Internal Medicine; Visit Provider Internal Medicine Gastroenterology
DX: K85.90 Acute pancreatitis without necrosis or infection, unspecified (principal); D64.9 Anemia, unspecified; R53.83 Other fatigue; R10.9 Unspecified abdominal pain; I73.00 Raynaud's syndrome without gangrene; D84.9 Immunodeficiency, unspecified
CPT/HCPCS: 99214

== ENCOUNTER 2023-08-02 08:58 | Outpatient (REF) | payer OTHER, SELFPAY ==
--- NOTE | ~2023-08-02 | US_ITS ---
EXAMINATION: US ABDOMEN COMPLETE CLINICAL INFORMATION: Unspecified abdominal pain. Left flank tenderness, malaise, rule out kidney or other etiology. COMPARISON: MR abdomen without and with contrast 01/02/2022. CT abdomen and pelvis 05/15/2019. US abdomen complete with liver elastography 12/14/2018. TECHNIQUE: Real-time imaging of the abdominal viscera. Limited visualization due to bowel gas. FINDINGS: PANCREAS: Limited visualization of pancreatic tail and head. Imaged portion of pancreatic body is unremarkable. ABDOMINAL AORTA: Unremarkable. INFERIOR VENA CAVA: Visualized portions are normal. LIVER: Increased hepatic parenchymal heterogeneity and echogenicity could be associated with hepatocellular disease/hepatic steatosis and substantially limits visualization. Correlation with liver function tests and clinical exam recommended to determine further management. Right hepatic lobe measures 17.5 cm, hepatomegaly. GALLBLADDER: No gallstones. No gallbladder wall thickening. COMMON BILE DUCT: Normal in caliber measuring 0.5 cm in diameter. RIGHT KIDNEY: No hydronephrosis. No renal calculi. Limited visualization. The kidney measures 10.0 cm in maximum dimension. LEFT KIDNEY: No hydronephrosis. No renal calculi. Limited visualization. The kidney measures 11.3 cm in maximum dimension. SPLEEN: Limited visualization. The spleen measures 10.2 cm in maximum dimension. FREE FLUID: None. US/US abdomen complete IMPRESSION: Increased hepatic parenchymal heterogeneity and echogenicity could be associated with hepatocellular disease/hepatic steatosis and substantially limits visualization. Correlation with liver function tests and clinical exam recommended to determine further management. Right hepatic lobe measures 17.5 cm, hepatomegaly.
== END 2023-08-02 08:59 | disposition home or self-care (01) ==
LOC: HO.US 08:58
PROVIDERS: PCP Internal Medicine; Visit Provider Internal Medicine Gastroenterology
DX: R10.9 Unspecified abdominal pain (principal); R53.83 Other fatigue; D64.9 Anemia, unspecified
CPT/HCPCS: 76700

== ENCOUNTER 2023-08-27 09:34 | Outpatient (REF) | payer OTHER, SELFPAY ==
[2023-08-27 11:50] LABS: Ferritin 56 ng/mL (10-250)
[2023-08-27 11:52] LABS: HBS Num1 0.61 mIU/mL (0-7.99); HBc Num1 0.12 S/CO (0.00-0.79); HBsAGNum1 0.41 S/CO (0.00-0.99); Hepatitis A Antibody IgM 0.27 Index (0-0.79); Hepatitis B Core Antibody Nonreactive (Nonreactive); Hepatitis B Surface Antigen Negative (Negative); ~HepC Num1 0.22 S/CO (0.00-0.79); ~Hepatitis A Antibody IgM Nonreactive (Nonreactive); ~Hepatitis B Surface Antibody NONREACTIVE (Nonreactive); ~Hepatitis C Antibody Nonreactive (Nonreactive)
[2023-08-30 11:43] LABS: Anti Nuclear Antibody Screen NEGATIVE (NEGATIVE)
[2023-08-30 18:29] LABS: Alpha 1 Anti-trypsin 142 mg/dL (83-199); Immunoglobulin G 1280 mg/dL (600-1640)
[2023-08-31 13:04] LABS: Mitochondrial Antibodies NEGATIVE (NEGATIVE)
[2023-09-01 13:47] LABS: Liver Kidney Microsomal Ab <=20.0 U (<=20.0)
[2023-09-02 14:33] LABS: Gliadin Deamidated IgA Ab 4.3 U/mL; Gliadin Deamidated IgG Ab <1.0 U/mL
== END 2023-08-27 09:35 | disposition home or self-care (01) ==
LOC: HO.LAB 09:34
PROVIDERS: PCP Internal Medicine; Visit Provider Internal Medicine Gastroenterology
DX: R10.9 Unspecified abdominal pain (principal); K52.839 Microscopic colitis, unspecified; R79.89 Other specified abnormal findings of blood chemistry; R79.82 Elevated C-reactive protein (CRP); K85.90 Acute pancreatitis without necrosis or infection, unspecified
CPT/HCPCS: 36415; 82103; 82728; 82784; 86038; 86258; 86376; 86381; 86704; 86706; 86709; 86803; 87340

== ENCOUNTER 2023-12-10 09:34 | Outpatient (AMB) | payer OTHER, SELFPAY ==
--- NOTE | 2023-12-10 09:42 | MHC.OFFVIS ---
Vital Signs 12/10/23 09:43 Height 5 ft 11 in Weight 171 lb 15.369 oz BMI 24.0 BP 98/59 L Blood Pressure Location Lt brachial Position Sitting Pulse 80 Intake Visit Reasons: 4 month follow up anemia Intake Note: Elizabeth presents in the office as a 4 month follow up for anemia. CC: She states that there was never a follow up for a US that she had. There was some concerns with the liver and she had lab works done. 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 Allergies Penicillins [PENICILLINS] Allergy (Mild, Verified 12/10/23 09:44) ANAPHYLAXIS prochlorperazine [From COMPAZINE] Allergy (Mild, Verified 12/10/23 09:44) ANAPHYLAXIS Sulfa (Sulfonamide Antibiotics) [SULFA (SULFONAMIDE ANTIBIOTICS)] Allergy (Mild, Verified 12/10/23 09:44) PAIN,TACHYCARDIA acetaminophen [From TYLENOL] Allergy (Unknown, Verified 12/10/23 09:44) HALLUCIANTIONS fluconazole [From DIFLUCAN] Allergy (Unknown, Verified 12/10/23 09:44) HIVES/BREATHING DIFFICULTY HPI HPI 4 month follow up anemia: Details: 53 yr old f w/ hx of hiatal hernia and what she thought was celiac disease (based on sx and FH) here for f/u RECAP: She had severe upper abdoo pain, 11/26/18 and went to the ED had mild raised lipase and CT with acute interstitial pancreatitis she said on retrospect she has had these attacks of abdominal pain maybe 1-2 times/year she has baseline discomfort most days, craping nad bloating after eating, with some dizziness and gassiness. she has nausea, no vomiting she also has alternating diarrhea and constipation, most recently has had oily appearing bowel habits she has had joint pains, with swollen fingers at times she had colonosopy 2011 due to chronic digestive complaints per her, and it was normal per her, she had EGD same time she is on gluten free diet, appetite variable, weight stable. she feels creon helps a lot of her GI sx, trental also helps she had EGD 12/2018 with mild esophagitis, small hiata hernai, bx neg for celiac labs neg for celiac serology, normal igg4 MRI_ 11/2018- no panc divisum, no stones, ?panc stricture, mild pancreatitis Gene testing--neg for PRSS, CTFR, spink colonoscopy 03/2019---x 2 polyps removed, random bx neg, internal hemorrhoids she was referred for Mr defecography due to incomplete evacuation but couldn do it she had cat scratch fever and was recovering from this still not 100% but was getting better she thinks azithromycin helped her stomach as well she had been taking b6 supplement she is still taking trental and creon which she finds really helps her I suspected she had raynauds, she felt trental was helping this Rept MRI 12/2021- nml pancreas, hepatic steatosis she had covid at beginning of February and she had low pulse ox, made her really sick, but she improved without paxlovid I checked her vit levels and several were high so asked to cut back on these slick Vit E and K She also had repeat colonoscopy: no polyps but some congestion in rectum, bx with prominent lymphoid aggregates she had several bouts of covid and I ordered some labs--vitamins were normal --IgG was nrml US with hepatic steatosis --ALT 38 INTERIM: she had tick bites and had ABX treatments she has been looking to see rheum for some nodules on her fingers, she is taking trental bid she is taking tumeric and quercetin she is taking anti inflamm supplments stress is much better, private practice is better she is thinking about neuro behavioral training EXAM: GENERAL: The patient is well developed and nontoxic. VITAL SIGNS:see workflow HEENT: Nonicteric sclerae, PERRLA, EOMI. Oropharynx red. Moist mucous membranes. Conjunctivae appear well perfused. No thyroid mass. CHEST: Chest wall is nontender. HEART: Regular rate and rhythm without murmurs. LUNGS: Clear to auscultation bilaterally. ABDOMEN: Soft, positive bowel sounds, tender left flank, no organomegaly. SKIN: No rash, no excessive bruising, petechiae, or purpura. NEUROLOGIC: Cranial nerves II-XII intact without motor/sensory deficit. psych: nml affect Assessments 1. Pancreatitis-idiopathic, 2. 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, taking trental PLAN: 1/ recheck labs today 2/ might need liver bx and Vit E or resmetirom 3/ exercise, and weight loss PFSH Medical History Borderline high cholesterol Cat scratch fever Arthritis Anemia Hx of pancreatitis Fatty liver Snores GERD (gastroesophageal reflux disease) Surgical History Hx of rhinoplasty Hx of hysterectomy [place] teeth extracted Hx of dilation and curettage Hx of endoscopy History of colonoscopy Family History Father Family history of high blood pressure Hx of heat stroke Mother Hx of congenital heart disease Social History Alcohol intake: never Patient Tobacco Use Status: Never used Tobacco Substance Use Type: Marijuana Physical Exam Vital Signs: Last Vital Signs Pulse 80 12/10/23 09:43 BP 98/59 L 12/10/23 09:43 BMI result Body Mass Index 24.0 Assessment & Plan Assessment & Plan (1) Abnormal LFTs: Code(s): R79.89 - Other specified abnormal findings of blood chemistry Category: Medical Plan: see above Orders: Orders Liver Fibrosis Pnl Today R79.89 - Other specified abnormal findings of blood chemistry Comprehensive Met. Panel Today K75.81 - Nonalcoholic steatohepatitis ([place]), R79.89 - Other specified abnormal findings of blood chemistry Complete Blood Count Auto Diff Today R79.89 - Other specified abnormal findings of blood chemistry Medications: New ondansetron HCl 8 mg (2 x 4 mg) PO BID PRN 30 tabs 0RF Nausea Coding Level of Care Code Est Pt Level 4 (98583) Diagnoses Abnormal LFTs R79.89
[2023-12-10 09:43] VITALS: BP 98/59; PULSE 80; BMI 24.0
== END 2023-12-10 10:24 | disposition home or self-care (01) ==
PROVIDERS: PCP Internal Medicine; Visit Provider Internal Medicine Gastroenterology
DX: R79.89 Other specified abnormal findings of blood chemistry (principal)
CPT/HCPCS: 99214

== ENCOUNTER → 2023-12-10 09:34 | Outpatient (BNVA) | payer OTHER, SELFPAY | PROVIDERS: PCP Internal Medicine; Visit Provider Internal Medicine Gastroenterology ==

== ENCOUNTER → 2024-06-26 13:35 | Outpatient (AMB) | payer OTHER, SELFPAY ==
--- NOTE | 2024-06-26 13:38 | MHC.OFFVIS ---
Vital Signs 06/26/24 13:39 Height 5 ft 11 in Weight 172 lb BMI 24.0 BP 102/61 Blood Pressure Location Lt brachial Position Sitting Pulse 75 Intake Visit Reasons: 4 month follow up r/s from 04/14 Intake Note: Elizabeth presents in the office as as 4 month follow up. CC: states she has some questions regarding some ongoing symptoms. Allergies amylase [From Zenpep] Allergy (Mild, Verified 06/26/24 13:40) Migraine, Vision Changes lipase [From Zenpep] Allergy (Mild, Verified 06/26/24 13:40) Unknown Penicillins [PENICILLINS] Allergy (Mild, Verified 06/26/24 13:39) ANAPHYLAXIS prochlorperazine [From COMPAZINE] Allergy (Mild, Verified 06/26/24 13:39) ANAPHYLAXIS protease [From Zenpep] Allergy (Mild, Verified 06/26/24 13:40) Unknown Sulfa (Sulfonamide Antibiotics) [SULFA (SULFONAMIDE ANTIBIOTICS)] Allergy (Mild, Verified 06/26/24 13:39) PAIN,TACHYCARDIA acetaminophen [From TYLENOL] Allergy (Unknown, Verified 06/26/24 13:39) HALLUCIANTIONS fluconazole [From DIFLUCAN] Allergy (Unknown, Verified 06/26/24 13:39) HIVES/BREATHING DIFFICULTY HPI HPI 4 month follow up r/s from 04/14: Details: 54 yr old f w/ hx of hiatal hernia and what she thought was celiac disease (based on sx and FH) here for f/u RECAP: She had severe upper abdoo pain, 11/26/18 and went to the ED had mild raised lipase and CT with acute interstitial pancreatitis she said on retrospect she has had these attacks of abdominal pain maybe 1-2 times/year she has baseline discomfort most days, craping nad bloating after eating, with some dizziness and gassiness. she has nausea, no vomiting she also has alternating diarrhea and constipation, most recently has had oily appearing bowel habits she has had joint pains, with swollen fingers at times she had colonosopy 2011 due to chronic digestive complaints per her, and it was normal per her, she had EGD same time she is on gluten free diet, appetite variable, weight stable. she feels creon helps a lot of her GI sx, trental also helps she had EGD 12/2018 with mild esophagitis, small hiata hernai, bx neg for celiac labs neg for celiac serology, normal igg4 MRI_ 11/2018- no panc divisum, no stones, ?panc stricture, mild pancreatitis Gene testing--neg for PRSS, CTFR, spink colonoscopy 03/2019---x 2 polyps removed, random bx neg, internal hemorrhoids she was referred for Mr defecography due to incomplete evacuation but couldn do it she had cat scratch fever and was recovering from this still not 100% but was getting better she thinks azithromycin helped her stomach as well she had been taking b6 supplement she is still taking trental and creon which she finds really helps her I suspected she had raynauds, she felt trental was helping this Rept MRI 12/2021- nml pancreas, hepatic steatosis she had covid at beginning of February and she had low pulse ox, made her really sick, but she improved without paxlovid I checked her vit levels and several were high so asked to cut back on these slick Vit E and K She also had repeat colonoscopy: no polyps but some congestion in rectum, bx with prominent lymphoid aggregates she had several bouts of covid and I ordered some labs--vitamins were normal --IgG was nrml US with hepatic steatosis --ALT 38 INTERIM: she is back on creon she did not tolerate zenpep and it made her feel unwell bowel habit sticky at times, shoudl be on x 4 creon, only taking 1-3 she is working on her lifestyle, more activity taking supplements wehn recalls and helping her slick quercetin still taking trental she can have feeling of incomplete evacuation, also pelvic floor issues --hasn't seen gynae EXAM: GENERAL: The patient is well developed and nontoxic. VITAL SIGNS:see workflow HEENT: Nonicteric sclerae, PERRLA, EOMI. Oropharynx red. Moist mucous membranes. Conjunctivae appear well perfused. No thyroid mass. CHEST: Chest wall is nontender. HEART: Regular rate and rhythm without murmurs. LUNGS: Clear to auscultation bilaterally. ABDOMEN: Soft, positive bowel sounds, tender left flank, no organomegaly. SKIN: No rash, no excessive bruising, petechiae, or purpura. NEUROLOGIC: Cranial nerves II-XII intact without motor/sensory deficit. psych: nml affect Assessments 1. Pancreatitis-idiopathic, 2. 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, taking trental PLAN: 1/ she will see her janitorial assistant first, will get sigmoidoscopy and maybe Mr defecography 2/ increase creon to 4 caps with meals PFSH Medical History Borderline high cholesterol Cat scratch fever Arthritis Anemia Hx of pancreatitis Fatty liver Snores GERD (gastroesophageal reflux disease) Surgical History Hx of rhinoplasty Hx of hysterectomy [place] [employer] teeth extracted Hx of dilation and curettage Hx of endoscopy History of colonoscopy Family History Father Family history of high blood pressure Hx of heat stroke Mother Hx of congenital heart disease Social History Alcohol intake: never Patient Tobacco Use Status: Never used Tobacco Substance Use Type: Marijuana Physical Exam Vital Signs: Last Vital Signs Pulse 75 06/26/24 13:39 BP 102/61 06/26/24 13:39 BMI result Body Mass Index 24.0 Assessment & Plan Assessment & Plan (1) Malabsorption: Code(s): K90.9 - Intestinal malabsorption, unspecified Category: Medical Qualifiers: Intestinal malabsorption type: unspecified Qualified Code(s): K90.9 - Intestinal malabsorption, unspecified Plan: see above Coding Level of Care Code Est Pt Level 3 (18059) Diagnoses Intestinal malabsorption, unspecified type K90.9 Intestinal malabsorption type: unspecified
[2024-06-26 13:39] VITALS: BP 102/61; PULSE 75; BMI 24.0
== END ==
PROVIDERS: PCP Internal Medicine; Visit Provider Internal Medicine Gastroenterology
DX: K90.9 Intestinal malabsorption, unspecified (principal)
CPT/HCPCS: 99213

== ENCOUNTER 2024-10-05 07:33 | Day surgery (SDC) | payer OTHER, SELFPAY ==
[2024-10-03 14:27] VITALS: BMI 24.0
--- NOTE | 2024-10-04 09:40 | HO.ANESPROP2 ---
Documented by User: Cris Miller NP 10/04/24 09:40 HPI - Anesthesia Eval Consult details Narrative: 54yo F for Sigmoidoscopy Flexible PMFSH Active Problems Active Problems: All Active Problems Abnormal LFTs (Acute) Immunodeficiency (Acute) Left flank pain (Acute) Fatigue (Acute) Pancreatitis (Acute) Raynaud disease (Acute) Malabsorption (Acute) Anemia (Acute) Past Medical History Medical History (Updated 10/03/24 @ 14:27 by Elba Olguin RN) ADHD (attention deficit hyperactivity disorder) Borderline high cholesterol Arthritis Anemia Hx of pancreatitis Fatty liver Snores GERD (gastroesophageal reflux disease) Family History Family History Father Family history of high blood pressure Hx of heat stroke Mother Hx of congenital heart disease Family history of problems with anesthesia: No Surgical History Surgical History Hx of rhinoplasty Hx of hysterectomy [place] teeth extracted Hx of dilation and curettage Hx of endoscopy History of colonoscopy History of Problems with Anesthesia: No Social History Social History Are you a primary medicare contact specialist to a significant other at home: No Do you presently have visiting nurse or other home services: No Alcohol intake: never Patient Tobacco Use Status: Never used Tobacco Use of substances other than those prescribed or required for medical reasons: No Substance Use Type: Marijuana Have you been hit, kicked, punched, or otherwise hurt by someone within the past year? If so, by whom?: No Are you DNR?: No Advance Directives: No Advance Directives Information Provided: No Advance Directives on File: No Patient : No : No Poor oral hygiene: No Meds Allergies Allergy/AdvReac Type Severity Reaction Status Date / Time Penicillins [PENICILLINS] Allergy Severe ANAPHYLAXIS Verified 10/05/24 07:55 prochlorperazine Allergy Severe ANAPHYLAXIS Verified 10/05/24 07:55 [From COMPAZINE] acetaminophen [From TYLENOL] Allergy Intermediate Hallucinati Verified 10/05/24 07:55 ons fluconazole [From DIFLUCAN] Allergy Intermediate HIVES/BREATHING Verified 10/05/24 07:55 DIFFICULTY amylase [From Zenpep] Allergy Mild Migraine, Verified 10/05/24 07:55 Vision Changes lipase [From Zenpep] Allergy Mild Migraine, Verified 10/05/24 07:55 Vision Changes protease [From Zenpep] Allergy Mild Migraine, Verified 10/05/24 07:55 Vision Changes Sulfa (Sulfonamide Allergy Mild PAIN,TACHYC Verified 10/05/24 07:55 Antibiotics) ARDIA [SULFA (SULFONAMIDE ANTIBIOTICS)] Home Medications ?Medication ?Instructions ?Recorded ?Confirmed ?Last Taken ?Type docusate sodium 100 mg capsule 100 mg PO DAILY 07/02/22 10/05/24 Unknown History (Colace) alprazolam 0.5 mg tablet 0.5 mg PO DAILY PRN Anxiety 01/01/23 10/05/24 Unknown History levocetirizine 2.5 mg/5 mL oral 2.5 mg PO QPM 12/10/23 10/05/24 Unknown History solution (Xyzal) dextroamphetamine-amphetamine 5 mg 1 tab PO BID 10/03/24 10/05/24 Unknown History tablet Exam Height,Weight and Vital Signs: Height 5 ft 11 in Weight 78.018 kg Assessment and Plan Assessment Anesthesia Assessment: Chart Reviewed Final Anesthetic Review Family History of Problems with Anesthesia: No History of Problems with Anesthesia: No Documented by User: Byron Weiss MD 10/05/24 08:59 [facility] Past Medical History Medical History (Updated 10/03/24 @ 14:27 by Elba Olguin RN) ADHD (attention deficit hyperactivity disorder) Borderline high cholesterol Arthritis Anemia Hx of pancreatitis Fatty liver Snores GERD (gastroesophageal reflux disease) Family History Family History Father Family history of high blood pressure Hx of heat stroke Mother Hx of congenital heart disease Surgical History Surgical History Hx of rhinoplasty Hx of hysterectomy [place] teeth extracted Hx of dilation and curettage Hx of endoscopy History of colonoscopy Social History Social History Are you a primary medicare contact specialist to a significant other at home: No Do you presently have visiting nurse or other home services: No Alcohol intake: never Patient Tobacco Use Status: Never used Tobacco Use of substances other than those prescribed or required for medical reasons: No Substance Use Type: Marijuana Have you been hit, kicked, punched, or otherwise hurt by someone within the past year? If so, by whom?: No Are you DNR?: No Advance Directives: No Advance Directives Information Provided: No Advance Directives on File: No Patient : No : No Poor oral hygiene: No Meds Allergies Allergy/AdvReac Type Severity Reaction Status Date / Time Penicillins [PENICILLINS] Allergy Severe ANAPHYLAXIS Verified 10/05/24 07:55 prochlorperazine Allergy Severe ANAPHYLAXIS Verified 10/05/24 07:55 [From COMPAZINE] acetaminophen [From TYLENOL] Allergy Intermediate Hallucinati Verified 10/05/24 07:55 ons fluconazole [From DIFLUCAN] Allergy Intermediate HIVES/BREATHING Verified 10/05/24 07:55 DIFFICULTY amylase [From Zenpep] Allergy Mild Migraine, Verified 10/05/24 07:55 Vision Changes lipase [From Zenpep] Allergy Mild Migraine, Verified 10/05/24 07:55 Vision Changes protease [From Zenpep] Allergy Mild Migraine, Verified 10/05/24 07:55 Vision Changes Sulfa (Sulfonamide Allergy Mild PAIN,TACHYC Verified 10/05/24 07:55 Antibiotics) ARDIA [SULFA (SULFONAMIDE ANTIBIOTICS)] Home Medications ?Medication ?Instructions ?Recorded ?Confirmed ?Last Taken ?Type docusate sodium 100 mg capsule 100 mg PO DAILY 07/02/22 10/05/24 Unknown History (Colace) alprazolam 0.5 mg tablet 0.5 mg PO DAILY PRN Anxiety 01/01/23 10/05/24 Unknown History levocetirizine 2.5 mg/5 mL oral 2.5 mg PO QPM 12/10/23 10/05/24 Unknown History solution (Xyzal) dextroamphetamine-amphetamine 5 mg 1 tab PO BID 10/03/24 10/05/24 Unknown History tablet Exam Airway Mallampati Class: I TM Dist: <=3cm Neck ROM: Full Loose/Missing/Broken Teeth: No Heart: ok Lungs: ok Assessment and Plan Assessment Anesthesia Assessment: Anesthesia Plan Discussed Final Anesthetic Review NPO: Yes ASA Class: II Final Preanesthetic Review: No Changes in Pt Med Stat, Meds/Allgs Chart Reviewed, Consent Obtained/Reviewed and Anes Risks/Benef Reviewed Patient Risk: Low Procedure Risk: Low Anesthetic Plan Anesthetic Plan: MAC: and Agree w/ Assess. and Plan Disposition: Standard PACU
[2024-10-05 07:57] VITALS: BP 94/63; PULSE 64; RESP 16; TEMP 36.6; O2SAT 97; BMI 24.4
--- NOTE | 2024-10-05 08:09 | MHC.SHP ---
Pre-Procedural Eval Section A - 24 Hr Update-Section A only Date of Service: 10/05/24 Section B - Complete if H&P > 30 days Chief Complaint: Other specified symptoms and signs involving Relevant Family History (Specify if Yes): No Relevant Social History: None Present Medications: see Short Stay Collaborative assessment Medical History: Significant History (Borderline high cholesterol Cat scratch fever Arthritis Anemia Hx of pancreatitis Fatty liver Snores GERD (gastroesophageal reflux disease)) History of Previous Operations: Relevant previous surgery/procedure and date(s) (Hx of rhinoplasty Hx of hysterectomy [place] teeth extracted Hx of dilation and curettage Hx of endoscopy History of colonoscopy) Allergies: Allergies Allergy/AdvReac Type Severity Reaction Status Date / Time Penicillins [PENICILLINS] Allergy Severe ANAPHYLAXIS Verified 10/05/24 07:55 prochlorperazine Allergy Severe ANAPHYLAXIS Verified 10/05/24 07:55 [From COMPAZINE] acetaminophen [From TYLENOL] Allergy Intermediate Hallucinati Verified 10/05/24 07:55 ons fluconazole [From DIFLUCAN] Allergy Intermediate HIVES/BREATHING Verified 10/05/24 07:55 DIFFICULTY amylase [From Zenpep] Allergy Mild Migraine, Verified 10/05/24 07:55 Vision Changes lipase [From Zenpep] Allergy Mild Migraine, Verified 10/05/24 07:55 Vision Changes protease [From Zenpep] Allergy Mild Migraine, Verified 10/05/24 07:55 Vision Changes Sulfa (Sulfonamide Allergy Mild PAIN,TACHYC Verified 10/05/24 07:55 Antibiotics) ARDIA [SULFA (SULFONAMIDE ANTIBIOTICS)] Review of Systems Sugical H&P ROS: Negative: Constitution, Cardiovascular, Respiratory, Neurological, Psychiatric, Hem-Onc, Allergic/Immunologic, Gastrointestinal, Genitourinary, Musculoskeletal, Integumentary, Endocrine and Eyes/Ears/Nose/Throat Exam Surgical H&P Exam: Normal: HEENT, Normal: Heart, Normal: Lungs, Normal: Extremities, Normal: Abdomen, Normal: Skin and Normal: Neurological Plan Diagnosis/Plan: Unchanged I have reviewed the history and physical and performed a pertinent physical examination on my patient. No changes have occurred unless specified. Time Spent With Patient Time: Total time managing care of this patient today ____ minutes.
[2024-10-05] MEDS: Sodium Phosphate,Mono-Dibasic 133 ML ENEMA PR (08:18)
[2024-10-05] MEDS: Lactated Ringers 1,000 ML 100 ML IVCONT (08:27)
--- NOTE | 2024-10-05 08:48 | PC.NURSE ---
Fleet enema administered in preop, tolerated well. Output post admin per patient ny solids, diarrhea, water, with sediment . Dr. Wylie made aware. No additional enema needed at this time. May proceed.
--- NOTE | 2024-10-05 09:08 | W.PM.OPN ---
Operative Note Operative Note Date of Service: 10/05/24 Narrative: Procedure Description: sigmoidoscopy Indication: incomplete evacuation Anesthesia: MAC Sigmoidoscopy Instrument: pediatric colonoscope Colonoscopy Monitoring: Vital signs and clinical assessment, continuous EKG monitoring, Pulse oximetry, Carbon Dioxide monitoring and blood pressure monitoring were done throughout the procedure. Procedure: The patient was placed in the left lateral decubitis position and pre-procedure medications were administered. After a digital rectal examination of the ano-rectum, the video colonoscope was inserted into the rectum and advanced through the colon to the sigmoid colon The scope was slowly withdrawn in a retrograde panoramic fashion and the colon mucosa was carefully examined . Findings and interventions are described below. Procedure Difficulty: easy Findings: Transverse Colon- normal Sigmoid Colon: normal Rectum: Normal , retroflexion with small internal hemorrhoids Anorectum - normal Colon preparation: good Impression and Post Procedure Diagnosis: internal hemorrhoids, good sphincter tone, Plan: MR defecography to r/o anatomical issues Above findings were reviewed with the patient and relevant handouts were provided if indicated.
[2024-10-05 09:14] VITALS: BP 96/46; PULSE 64; RESP 17; TEMP 36.4; O2SAT 96
[2024-10-05 09:29] VITALS: BP 96/46; PULSE 64; RESP 17; TEMP 36.4; O2SAT 96
== END 2024-10-05 09:57 | disposition home or self-care (01) ==
PROVIDERS: PCP Internal Medicine; Visit Provider Internal Medicine Gastroenterology
PROC: 0DJD8ZZ Inspection of Lower Intestinal Tract, Via Natural or Artificial Opening Endoscopic (ICD-10-PCS; CPT 45330; principal; 2024-10-05 09:20)
DX: K90.9 Intestinal malabsorption, unspecified (principal); K64.8 Other hemorrhoids; K21.9 Gastro-esophageal reflux disease without esophagitis; K76.0 Fatty (change of) liver, not elsewhere classified; D64.9 Anemia, unspecified; I73.00 Raynaud's syndrome without gangrene; Z79.899 Other long term (current) drug therapy
CPT/HCPCS: 45330; J2003; J2704

== ENCOUNTER → 2024-10-05 07:33 | Outpatient (BNV) | payer OTHER, SELFPAY | PROVIDERS: PCP Internal Medicine; Visit Provider Internal Medicine Gastroenterology | DX: R19.4 Change in bowel habit (principal); K64.8 Other hemorrhoids | CPT/HCPCS: 45330 ==

== ENCOUNTER 2025-04-02 14:34 | Outpatient (AMB) | payer OTHER, SELFPAY ==
[2025-04-02 14:37] VITALS: BP 112/59; PULSE 68; BMI 23.4
--- NOTE | 2025-04-02 14:37 | A.OFFVIS_ITS ---
Vital Signs 04/02/25 14:37 Height 5 ft 11 in Weight 167 lb 8.821 oz BMI 23.4 BP 112/59 L Blood Pressure Location Lt brachial Position Sitting Pulse 68 Intake Visit Reasons: anemia Intake Note: Elizabeth presents in the office as a follow up for anemia. CC: She states that she states that the appt took to long and she forgets why she made appt. Probation Manager Required: No Allergies Penicillins (PENICILLINS) Allergy (Severe, Verified 04/02/25 14:39) ANAPHYLAXIS prochlorperazine (From COMPAZINE) Allergy (Severe, Verified 04/02/25 14:39) ANAPHYLAXIS acetaminophen (From TYLENOL) Allergy (Intermediate, Verified 04/02/25 14:39) Hallucinations fluconazole (From DIFLUCAN) Allergy (Intermediate, Verified 04/02/25 14:39) HIVES/BREATHING DIFFICULTY amylase (From Zenpep) Allergy (Mild, Verified 04/02/25 14:39) Migraine, Vision Changes lipase (From Zenpep) Allergy (Mild, Verified 04/02/25 14:39) Migraine, Vision Changes protease (From Zenpep) Allergy (Mild, Verified 04/02/25 14:39) Migraine, Vision Changes Sulfa (Sulfonamide Antibiotics) (SULFA (SULFONAMIDE ANTIBIOTICS)) Allergy (Mild, Verified 04/02/25 14:39) PAIN,TACHYCARDIA HPI HPI anemia: Details: 54 yr old f w/ hx of hiatal hernia and what she thought was celiac disease (based on sx and FH) here for f/u RECAP: She had severe upper abdoo pain, 11/26/18 and went to the ED had mild raised lipase and CT with acute interstitial pancreatitis she said on retrospect she has had these attacks of abdominal pain maybe 1-2 times/year she has baseline discomfort most days, craping nad bloating after eating, with some dizziness and gassiness. she has nausea, no vomiting she also has alternating diarrhea and constipation, most recently has had oily appearing bowel habits she has had joint pains, with swollen fingers at times she had colonosopy 2011 due to chronic digestive complaints per her, and it was normal per her, she had EGD same time she is on gluten free diet, appetite variable, weight stable. she feels creon helps a lot of her GI sx, trental also helps she had EGD 12/2018 with mild esophagitis, small hiata hernai, bx neg for celiac labs neg for celiac serology, normal igg4 MRI_ 11/2018- no panc divisum, no stones, ?panc stricture, mild pancreatitis Gene testing--neg for PRSS, CTFR, spink colonoscopy 03/2019---x 2 polyps removed, random bx neg, internal hemorrhoids she was referred for Mr defecography due to incomplete evacuation but couldn do it she had cat scratch fever and was recovering from this still not 100% but was getting better she thinks azithromycin helped her stomach as well she had been taking b6 supplement she is still taking trental and creon which she finds really helps her I suspected she had raynauds, she felt trental was helping this Rept MRI 12/2021- nml pancreas, hepatic steatosis she had covid at beginning of February and she had low pulse ox, made her really sick, but she improved without paxlovid I checked her vit levels and several were high so asked to cut back on these slick Vit E and K She also had repeat colonoscopy: no polyps but some congestion in rectum, bx with prominent lymphoid aggregates she had several bouts of covid and I ordered some labs--vitamins were normal -- IgG was nrml US with hepatic steatosis --ALT 38 Sigmoidoscopy - small internal hemorrhoids INTERIM: she noted pain on her side usu under left ribs maybe worse at night dull ache, no pins and needles no worsening or exacerbating factors noted more gas not relieved by gas or stool it comes and goes and not as bas as it was few months ago she has been seeing geometry professor due to poor response to vaccines stools are normal -takes colace at night she has been doing more running and training EXAM: GENERAL: The patient is well developed and nontoxic. VITAL SIGNS:see workflow HEENT: Nonicteric sclerae, PERRLA, EOMI. Oropharynx red. Moist mucous membranes. Conjunctivae appear well perfused. No thyroid mass. CHEST: Chest wall is nontender. HEART: Regular rate and rhythm without murmurs. LUNGS: Clear to auscultation bilaterally. ABDOMEN: Soft, positive bowel sounds, tender left flank, no organomegaly. SKIN: No rash, no excessive bruising, petechiae, or purpura. NEUROLOGIC: Cranial nerves II-XII intact without motor/sensory deficit. psych: nml affect MS: pain worse with lateral rotation, tender all on left uper side into the the flank area, scoliosis noted as well Assessments 1. Pancreatitis-idiopathic, 2. 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, taking trental 3/ LUQ pain goes into the back, worse with rotation appears to be musculoskeletal PLAN: 1/ trial of lidocaine patch, and she will do her own strength management --doesnt want PT referral 2/ if ongoing sx then MRI pancreas PFSH Medical History ADHD (attention deficit hyperactivity disorder) Borderline high cholesterol Arthritis Anemia Hx of pancreatitis Fatty liver Snores GERD (gastroesophageal reflux disease) Surgical History Hx of rhinoplasty Hx of hysterectomy [place] teeth extracted Hx of dilation and curettage Hx of endoscopy History of colonoscopy Family History Father Family history of high blood pressure Hx of heat stroke Mother Hx of congenital heart disease Social History Are you a primary before and after school daycare worker to a significant other at home: No Do you presently have visiting nurse or other home services: No Alcohol intake: never Patient Tobacco Use Status: Never used Tobacco Substance Use Type: Marijuana Physical Exam Vital Signs: Last Vital Signs Pulse 68 04/02/25 14:37 BP 112/59 L 04/02/25 14:37 BMI result Body Mass Index 23.4 Assessment & Plan Assessment & Plan (1) Left flank pain: Code(s): R10.9 - Unspecified abdominal pain Category: Medical Plan: as above Medications: New lidocaine 5% leave on most painful area for up to 12 hrs 1 patch topical DAILY 30 ea 1RF Coding Level of Care Code Est Pt Level 3 (93844) Diagnoses Left flank pain R10.9
--- OUTSIDE RECORDS SUMMARY | 2025-04-02 16:54 | XMS_ITS | Encounter Summary ---
Author Organization [facility] Address [address] [facility] [address] [place] [phone] Phone Care Team Providers Care Bottom Saw Operator Name Role Phone Pj Maradiaga MD Primary Care Provider Pj Maradiaga MD Unavailable [phone] Anderson MD Primary Care Provider [phone] Encounter Details Date Type Department Care Team (Late st Contact Info) Description 04/06/2020 Transcribe Orders [facility] [address] [place] [address] Pj Maradiaag MD [address] [place] [address] [email or web address] Social History Tobacco Use Types Packs/Day Years Used Date Smoking Tobacco: Former Cigarettes 0.3 1 2 010 - 2010 Smokeless Tobacco: Never Alcohol Use Standard Drinks/Week Comments Yes 0 (1 standard drink = 0.6 oz pur e alcohol) socially. 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 on file Not on file Not on file documented as of this encounter Plan of Treatment Not on file documented as of this encounter Visit Diagnoses Not on filedocumented in this encounter Additional Health Concerns Infection Onset Date Last Indicated Resolved Time CoV-Risk 05/22/2020 05/24/2020 06/03/2020 1:25 AM EST Assessment Noted Time PHQ-2 Depression Total Score: 0 07/31/19 20 11:23 AM EDT documented as of this encounter Care Teams Bottom Saw Operator Relationship Specialty Start Date End Date Pj Maradiaga MD [address] [place] [address] [email or web address] PCP - General Internal Medicine 05/10/17 10/10/20 Ct Anderson MD [address] [place] [address] PCP - General Internal Medicine 10/11/20 Pj Maradiaga MD [address] [place] [address], [address] [place] [address] [email or web address] Insurance Assigned Provider 04/28/20 03/01/21 documented as of this encounter Additional Source Comments The information contained in this document represents components of the legal health record. It is not the complete legal health record[facility]
--- OUTSIDE RECORDS SUMMARY | 2025-04-02 16:55 | XMS_ITS | Clinical Summary ---
Author Organization [facility] Address [facility] [employer] [address] [address] Phone Care Team Providers Care Patient Access Specialist Name Role Phone Ct Anderson MD Primary Care Provider [phone] Allergies Active Allergy Reactions Criticality Noted Date Comments Prochlorperazine Edisylate 7 Fluconazole Hives High 09/14/2018 Penicillins 04/08/2017 Sulfa (Sulfonamide Antibiotics) 03/24 Acetaminophen Unknown 05/25/2017 hallocuations Medications Ca cit-D3-mag#[id number] r (CALTRATE 600+D) 600 mg calcium- 800 unit-50 mg Tab Activ e iron, ferronyl,-vitam in C 65 mg iron- 125 mg TbEC Active b complex vitamins capsule Take 1 capsule by mouth daily. Active ascorbic acid, vitamin C, (VITAMIN C) 500 mg Chew Take by mouth 2 (two) times a day. Active multivit-minera ls/ferrous fum (MULTI VITAMIN ORAL) Take by mouth. Activ e fluticasone propionate (FLONASE) 50 mcg/actuation nasal spray 1 spray by Nasal route daily as needed. Active loratadine (CLARITIN) 10 mg tablet Take 20 mg by mouth daily as needed. Active pentoxifylline (TRENTAL) 400 mg CR tablet Take 400 mg by mouth 2 (two) times a day. Active ondansetron (ZOFRAN) 4 MG tabletIndicatio ns:Take one to two as needed every 8 hours. Take 4 mg by mouth every 8 (eight) hours as needed for nausea. Indications: Take one to two as needed every 8 hours. Active pancrelipase, lipase-protease -amylase, (CREON) 12,000-38,000 -60,000 unit CpDR capsule 12,000 units of lipase as directed. Active mag hydrox/aluminum hyd/simeth (MAALOX ORAL) Take by mouth as needed. Active ALPRAZolam (XANAX) 0.5 MG tabletIndicatio ns:Panic attack Take 1 tablet (0.5 mg total) by mouth every 6 (six) hours as needed for anxiety (before Flights). 15 tablet 9 Active Additional Information Patient not taking.Reported on 05/24/2020 predniSONE (DELTASONE) 10 MG tablet Take 1 tablet (10 mg total) by mouth daily. 10 tablet 9 Active Additional Information Patient not taking.Reported on 02/15/2019 albuterol 90 mcg/actuation inhaler Inhale 2 puffs into the lungs every 6 (six) hours as needed for wheezing. 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 She is on high dose Creon at mealtimes. Rheumatoid factor positive 02/15/2019 Polyarthralgia 01/20/2019 Abnormal uterine bleeding (AUB) 11/18/2017 Assessment & Plan (11/18/2017 5:21 PM EDT): Improved with Mirena BV (bacterial vaginosis) 11/18/2017 Assessment & Plan (11/18/2017 5:23 PM EDT): Symptoms, treatment, prevention reviewed. Medication instructions reviewed. Possibility of sexual transmission between female partners discussed Intermenstrual bleeding 11/18/2017 Assessment & Plan (11/18/2017 5:24 PM EDT): Reassured normal with initial Mirena use, may improve over time. Perimenopause 06/23/2017 Depression with anxiety 05/25/2017 Hiatal hernia 05/25/2017 Assessment & Plan (06/06/2018 9:34 AM EST): Stable off PPI now after diet change. Panic attack 05/25/2017 Overview (06/06/2018): Mainly with flying. Lorazepam 0.5 made her feel terribly drugged. Xanax 0.5-0.75mg works well, rx'd by her Chronic anemia 05/25/2017 Overview (06/06/2018): Thought to be dt her celiac disease. Has had EGD/COLO Family history of coronary arteriosclerosis 06/2017 Malaise and fatigue 05/25/2017 Assessment & Plan (06/06/2018 9:24 AM EST): Overall improved, plans to start using an elliptical at home. Assessment & Plan (05/25/2017 12:13 PM EST): I rec she consider a sleep study, and possibly nica or zyrtec for cat allergy. She shows me a picture with reddened eyes and allergic bags in the morning. Encounters Date Type Department Care Team Description 02/16/2025 12:52 PM EDT - 02/16/2025 11:59 PM EDT Hospital Encounter [facility] [address] [place] [address] Marv Hill, DO Discharge Disposition: Home or Self Care from Last 3 Months Immunizations Immunization Administration Dates Next Due Influenza Quadrivalent w/ Preservative IM 2017 Tdap 06/06/2018 Family History Medical History Relation Comments Hypertension Father Stroke Father Coronary artery disease Mother Hyperlipidemia Mother Bladder Cancer Paternal Grandfather Relation Status Comments Father (Age 54) Mother Alive Paternal Grandfather Social History Tobacco Use Types Packs/Day Years Used Date Smoking Tobacco: Former Cigarettes 0.3 1 2 010 - 2010 Smokeless Tobacco: Never Tobacco Cessation:Counseling Given: No Alcohol Use Standard Drinks/Week Comments Yes 0 (1 standard drink = 0.6 oz pur e alcohol) socially. 2 a week Education Answer Date Recorded Are you interested in more education? Not on shabana e 09/18/2022 Are you concerned about learning? Not on file 09/18/2022 No 09/18/2022 No 09/18/2022 Digital Access Answer Date Recorded No 10/19/2022 No 10/19/2022 Reliable internet access at home? Not on file 10/19/2022 Device with a working camera? Not on file Comments No Sex and Gender Information Value Date Recorded Sex Assigned at Female 07/06/2017 3:39 PM EST Legal Sex Female 5:04 PM EST Gender Identity Female 07/06/2017 3:39 PM EST Sexual Orientation Lesbian or Godinez 07/06/2017 3: 39 PM EST Occupation Industry Job Start Date Job End Date [employer] Not on file Not on file Not on file Last Filed Vital Signs Vital Sign Reading Time Taken Comments Blood Pressure 110/80 05/24/2020 10:43 AM EST Pulse 92 05/24/2020 10:43 AM EST Temperature 37.2 C (98.9 F) 05/24/2020 10:43 AM EST Respiratory Rate 15 05/24/2020 10:43 AM EST Oxygen Saturation 97% 05/24/2020 10:43 AM EST Inhaled Oxygen Concentration - - Weight 73.7 kg (162 lb 6.4 oz) 07/31/2019 11:25 AM EDT Height 179 cm (5' 10.47 ) 07/31/2019 11:25 AM ED T Body Mass Index 22.99 07/31/2019 11:25 AM EDT Plan of Treatment Health Maintenance Due Date Last Done Comments SMOKING Hx and SMOKELESS TOBACCO SCREENING 1984 HEPATITIS C SCREENING 1989 MAMMOGRAM 2011 COLOGUARD 2016 COLONOSCOPY 2016 COLORECTAL CANCER SCREENING 2016 FIT TEST 2016 FOBT 2016 SIGMOIDOSCOPY 2016 VIRTUAL COLONOSCOPY 2016 PAP SMEAR 05/20/2018 05/20/2015 DEPRESSION SCREENING 07/30/2020 07/31/2019 PNEUMOCOCCAL VACCINES (50+ years) (1 of 1 - PCV) 2021 ZOSTER VACCINES (1 of 2) 2021 LIPID PANEL 05/25/2022 05/25/2017, 05/26/2011 INFLUENZA VACCINE (#1) 2024 01/22/2018 COVID-19 VACCINE (3 - 2024-2 6 season) 2025 07/19/2020, 06/28/2020 IUD 07/06/2025 07/06/2017 Adult Td,Tdap Booster 06/06/2028 06/06/2018 RSV VACCINE (1 - 1-dose 75+ series) 2046 HIV ONE-TIME SCREENING (18-6 5 YEARS) Completed 07/30/2009 HEPATITIS A VACCINES Aged Out No long er eligible based on patient's age to complete this topic HIB VACCINES Aged Out No longer eligi ble based on patient's age to complete this topic MENINGOCOCCAL VACCINES (ACWY) Aged Out No longer eligible based on patient's age to complete this topic MENINGOCOCCAL VACCINES (B) Aged Out N o longer eligible based on patient's age to complete this topic Medical Devices Not on file Procedures Procedure Name Priority Date/Time Associated Diagnosis Comments MONOCLONAL PROTEIN STUDY, SERUM Routine 02/16/2025 1:22 PM EDT Perimenopause CBC AND DIFFERENTIAL Routine 02/16/2025 1:22 PM EDT Perimenopause T+B CELL QUANT, FLW CYTO Routine 02/16/2025 1:22 PM EDT Perimenopause IMMUNOGLOBULINS IGG, IGA, IGM Routine 02/16/2025 1:22 PM EDT Perimenopause IGG SUBCLASSES Routine 02/16/2025 1:22 PM EDT Perimenopause MANNOSE BINDING LECTIN Routine 1:22 PM EDT Perimenopause MYCOPLASMA ANTIBODIES, IGM, IGG Routine 02/16/2025 1:22 PM EDT Perimenopause COMPREHENSIVE METABOLIC PANEL (CMP) Routine 02/16/2025 1:22 PM EDT Perimenopause M. PNEUMONIA IGM, IFA Routine 02/16/2025 1:22 PM EDT MEASLES ANTIBODY, IGG Routine 02/16/2025 1:22 PM EDT Perimenopause MUMPS ANTIBODY, IGG Routine 02/16/2025 1 :22 PM EDT Perimenopause RUBELLA ANTIBODY, IGG Routine 02/16/2025 1:22 PM EDT Perimenopause Pneumococcus IgG antibody (23 serotypes) Routine 02/16/2025 1:22 PM EDT Perimenopause Tetanus antitoxoid antibody, IgG Routine 02/16/2025 1:22 PM EDT Perimenopause H. INFLUENZA TYPE B IGG ANTIBODY, SERUM Routine 02/16/2025 1:22 PM EDT Perimenopause LIPID PANEL Routine 05/25/2017 12:35 PM EST Family history of coronary arteriosclerosis OUTSIDE HIV Routine 07/30/2009 from Last 3 Months or Most Recently Relevant to Health Maintenance Results * Monoclonal protein study, serum (02/16/2025 1:22 PM EDT) M-protein GK Test component not applicable or not reported. g/dL [facility] M-protein GL Test component not applicable or not reported. g/dL [facility] M-protein AK Test component not applicable or not reported. g/dL [facility] M-protein AL Test component not applicable or not reported. g/dL [facility] M-protein MK Test component not applicable or not reported. g/dL [facility] M-protein ML Test component not applicable or not reported. g/dL [facility] Glycosylation Test component not applicable or not reported. [facility] Flag, M-protein Isotype Negative Negative [facility] QMPTS Interpretation No monoclonal protein detected. [facility] Comment: (NOTE) ADDITIONAL INFORMATION The submitted sample was assayed by five separate immunopurifications for IgG, IgA, IgM, kappa and lambda. The result reflects the findings of either no monoclonal protein detected or those monoclonal immunoglobulins that were detected. This test was developed and its performance characteristics determined by [facility] in a manner consistent with CLIA requirements. This test has not been cleared or approved by the U.S. Food and Drug Administration. IgA 197 61 - 356 mg/dL [facility] IgM 130 37 - 286 mg/dL [facility] IgG 1,190 767 - 1,590 mg/dL [facility] Therapeutic Antibody Administered? Unknown [facility] [place] Comment:Corrected on 02/19 A T 1314: previously reported as Unknown Blood 02/16/2025 1:22 PM EDT 02/16/2025 1:35 PM EDT Marv Hill DO LAB BLOOD BKR ORDERABLES Gamaliel archie Result - Final [facility] [address] [place] [address] * H. Influenza type B IgG antibody, serum (02/16/2025 1:22 PM EDT) [facility] H.INFLU B AB,IGG 1.12 >=0.15 mg/L [facility] Comment: (NOTE) ADDITIONAL INFORMATION The minimum level of protective antibody in the normal population is 0.15 mg/L. However, the optimum antibody level to confer prison immunity is >= 1.0 mg/L post vaccination. Blood 02/16/2025 1:22 PM EDT 02/16/2025 1:35 PM EDT Marv Hill DO LAB BLOOD ORDERABLES Final R esult [facility] [address] [place] [address] * Mumps antibody, IgG (02/16/2025 1:22 PM EDT) Pathologist [facility] MUMPS IGG AB Positive Positive [facility] Blood (Blood) 02/16/2025 1:2 2 PM EDT 02/19/2025 11:42 AM EDT Marv [facility] BLOOD BKR ORDERABLES Fin al Result Performing Organization Address [facility]/ZIP Co de Phone Number [facility] [address] [place] [address] * T+B cell quant, flow cytometry (02/16/2025 1:22 PM EDT) [facility] CD45 LYMPH COUNT 1.47 0.82 - 2.84 thou/mcL [facility] [address] %CD3 (T CELLS) 70 58 - 86 % [facility] [address] [place] %CD19 (B CELLS) 16 5 - 24 % [facility] [place] [address] %CD16+CD56 (NK CELLS) 14 5 - 28 % [facility] [address] [place] %CD4 (HELPER CELLS) 42 32 - 64 % [facility] [address] [place] %CD8 (SUPPR CELLS) 25 11 - 40 % [facility] CD3 (T CELLS) 1,030 550 - 2,202 cells/mc L [facility] CD19 (B CELLS) 235 60 - 409 cells/mc L [facility] CD16+CD56 (NK CELLS) 201 59 - 513 cells/mc L [facility] CD4 (HELPER CELLS) 614 365 - 1,437 cells/mc L [facility] CD8 (SUPPR CELLS) 362 117 - 846 cells/mc L [facility] H/S RATIO 1.7 >=0.9 [facility] Comment: (NOTE) ADDITIONAL INFORMATION This test was developed using an analyte specific reagent. Its performance characteristics were determined by [facility] in a manner consistent with CLIA requirements. This test has not been cleared or approved by the U.S. Food and Drug Administration. COMMENT Test component not applicable or not reported. [facility] Blood 02/16/2025 1:22 PM EDT 02/16/2025 1:35 PM EDT [facility] BLOOD ORDERABLES Final R esult [facility] [address] [place] [address] * Rubella antibody, IgG (02/16/2025 1:22 PM EDT) Rubella Ab, IgG Positive Positive [facility] Blood (Blood) 02/16/2025 1:2 2 PM EDT 02/19/2025 11:42 AM EDT [facility] BLOOD BKR ORDERABLES Fin al Result Performing Organization Address City/[facility]/ZIP Co de Phone Number [address] [address] * (ABNORMAL) Mannose binding lectin (02/16/2025 1:22 PM EDT) Ben Binding Lectin 4(L) >=10 % [facility] Comment: (NOTE) Low MBL functional values can be the result of improper specimen handling. Low results should be confirmed with the submission of a new sample. ADDITIONAL INFORMATION This test was developed and its performance characteristics determined by [facility] in a manner consistent with CLIA requirements. This test has not been cleared or approved by the U.S. Food and Drug Administration. Blood 02/16/2025 1:22 PM EDT 02/16/2025 1:34 PM EDT [facility] LAB BLOOD BKR ORDERABLES Fin al Result [facility] [address] [place] [address] * Immunoglobulins IgG, IgA, IgM (02/16/2025 1:22 PM EDT) Pathologist [facility] IMMUNOGLOBULIN G 1,326 700 - 1,600 mg/dL [facility] IgA 192 70 - 400 mg/dL [facility] IMMUNOGLOBULIN M 148 40 - 230 mg/dL [facility] Blood 02/16/2025 1:22 PM EDT 02/16/2025 1:34 PM EDT [facility] LAB BLOOD BKR ORDERABLES Fin al Result Performing Organization Address City/[facility]/ZIP Co de Phone Number [address] [address] * (ABNORMAL) Comprehensive metabolic panel (02/16/2025 1:22 PM EDT) Pathologist [facility] SODIUM 139 133 - 146 mmol/L [facility] POTASSIUM 4.0 3.3 - 5.1 mmol/L [facility] CHLORIDE 103 96 - 108 mmol/L [facility] CO2 26 21 - 35 mmol/L [facility] BUN 14 6 - 19 mg/dL [facility] CREATININE 0.70 0.5 - 1.5 mg/dL [facility] GLUCOSE 101(H) 70 - 99 mg/dL [facility] ALBUMIN 4.4 3.9 - 4.8 g/dL [facility] TOTAL PROTEIN 7.6 6.5 - 8.0 g/dL [facility] CALCIUM 9.5 8.4 - 10.3 mg/dL [facility] ALKALINE PHOSPHATASE 70 39 - 117 U/L [facility] TOTAL BILIRUBIN 0.3 0.0 - 1.2 mg/dL [facility] AST 21 0 - 37 U/L [facility] ALT 17 0 - 40 U/L [facility] GLOBULIN 3.2 1 - 4.8 g/dL [facility] EGFR 103 >59 mL/min/1.7 3m2 [facility] Comment:Estimated glomerular filtration rate calculated using the CKD-EPI refit equation. ANION GAP 14 10 - 20 mmol/L [facility] Blood 02/16/2025 1:22 PM EDT 02/16/2025 1:34 PM EDT [facility] BLOOD BKR ORDERABLES Fin al Result Performing Organization Address [facility] Co de Phone Number [address] [address] * M. pneumonia IgM, IFA (02/16/2025 1:22 PM EDT) Pathologist [facility] MYCOPLASMA AB, IGM, IFA Negative Negative [facility] Comment: (NOTE) A negative result does not rule out current Mycoplasma pneumoniae infection as the specimen may have been collected prior to development of detectable antibody levels. Repeat testing in 1-2 weeks if clinically indicated. ADDITIONAL INFORMATION M. pneumoniae IgM performed by immunofluorescence antibody (IFA). 02/16/2025 1:22 PM EDT 02/16/2025 1:35 PM EDT [facility] LAB BLOOD ORDERABLES Final R esult Performing Organization Address [facility] Co de Phone Number [facility] [address] [place] [address] * (ABNORMAL) Measles antibody, IgG (02/16/2025 1:22 PM EDT) RUBEOLA IGG Negative(A ) Positive [facility] Blood (Blood) 02/16/2025 1:2 2 PM EDT 02/19/2025 11:42 AM EDT Marv Najma [facility] LAB BLOOD BKR ORDERABLES Fin al Result Performing Organization Address [facility]/ZIP Co de Phone Number [facility] [address] [place] [address] * Tetanus antitoxoid antibody, IgG (02/16/2025 1:22 PM EDT) Tetanus Ab, IgG Positive [facility] Comment: (NOTE) REFERENCE VALUE Vaccinated: Positive (>= 0.01 IU/mL) Unvaccinated: Negative (< 0.01 IU/mL) Tetanus IgG Value 0.70 IU/mL [facility] Comment: (NOTE) ADDITIONAL INFORMATION This test was developed and its performance characteristics determined by [facility] in a manner consistent with CLIA requirements. This test has not been cleared or approved by the U.S. Food and Drug Administration. Blood 02/16/2025 1:22 PM EDT 02/16/2025 1:35 PM EDT Marv Najma [facility] LAB BLOOD ORDERABLES Final R esult Performing Organization Address [facility] Co de Phone Number [facility] [address] [place] [address] * (ABNORMAL) MYCOPLASMA ANTIBODIES, IGM, IGG (02/16/2025 1:22 PM EDT) M.PNEUMONIAE AB IGG Positive (A) Negative [facility] M.PNEUMONIAE AB IGM Reactive (A) Negative [facility] M.PNEUMONIAE AB INTRP SEE NOTE [facility] Comment: (NOTE) IgM result is NOT diagnostic. Confirmatory testing by immunofluorescence antibody (IFA) is required and has been ordered under test Mycoplasma pneumonia Antibody, IgM by Immunofluorescence Assay (IFA), serum. ADDITIONAL INFORMATION This test has been modified from the armature winder repair's instructions. Its performance characteristics were determined by [facility] in a manner consistent with CLIA requirements. This test has not been cleared or approved by the U.S. Food and Drug Administration. Blood 02/16/2025 1:22 PM EDT 02/16/2025 1:35 PM EDT Marv Hill LAB BLOOD ORDERABLES Final R esult [facility] [place] [address] [place] [address] * Pneumococcus IgG antibody (23 serotypes) (02/16/2025 1:22 PM EDT) Serotype 1 (1) 0.4 >=1.0 mcg/mL [facility] [address] Serotype 2 (2) 1.2 >=1.0 mcg/mL [facility] [address] Serotype 3 (3) 0.2 >=1.0 mcg/mL [facility] [address] Serotype 4 (4) 0.5 >=1.0 mcg/mL [facility] [address] Serotype 5 (5) 0.6 >=1.0 mcg/mL [facility] Serotype 8 (8) 0.9 >=1.0 mcg/mL [facility] Serotype 9N (9) 0.9 >=1.0 mcg/mL [facility] [address] Serotype 12F (12) 0.8 >=1.0 mcg/mL [facility] Serotype 14 (14) 0.2 >=1.0 mcg/mL [facility] [address] Serotype 17F (17) 0.9 >=1.0 mcg/mL [facility] [address] Serotype 19F (19) 2.8 >=1.0 mcg/mL [facility] [address] Serotype 20 (20) 2.6 >=1.0 mcg/mL [facility] [address] Serotype 22F (22) 1.4 >=1.0 mcg/mL [facility] [address] Serotype 23F (23) 0.8 >=1.0 mcg/mL [facility] [address] Serotype 6B (26) 0.4 >=1.0 mcg/mL [facility] Serotype 10A (34) 1.1 >=1.0 mcg/mL [facility] Serotype 11A (43) 0.4 >=1.0 mcg/mL [facility] Serotype 7F (51) 0.8 >=1.0 mcg/mL [facility] Serotype 18C (56) 0.4 >=1.0 mcg/mL [facility] [address] Serotype 19A (57) 2.1 >=1.0 mcg/mL [facility] Serotype 9V (68) 0.7 >=1.0 mcg/mL [facility] Serotype 33F (70) 1.8 >=1.0 mcg/mL [facility] [address] Interpretation SEE NOTE [facility] [address] Comment: (NOTE) Evaluation of the immune response following pneumococcal vaccination can be assessed by measuring serotype-specific Streptococcus pneumonia IgG antibodies. Either of the following conditions is consistent with a normal response to Streptococcus pneumonia vaccination: 1. When comparing pre and post-vaccination samples, antibody concentrations increased by at least 2-fold for either >50% of serotypes in children <6 years of age or >70% of serotypes for individuals >6 years of age. 2. In either a pre- or post-vaccination sample, antibody concentrations >=1.0 mcg/mL for either >50% of serotypes for children <6 years of age or >70% of serotypes for individuals >6 years of age. Results >=1.0 mcg/mL or those showing a >=2-fold change are consistent with an immune response, but are not necessarily sufficient to provide protection against infection. ADDITIONAL INFORMATION This test was developed and its performance characteristics determined by [facility] in a manner consistent with CLIA requirements. This test has not been cleared or approved by the U.S. Food and Drug Administration. Blood 02/16/2025 1:22 PM EDT 02/16/2025 1:35 PM EDT [facility] Emergency Department Najma [facility] LAB BLOOD BKR ORDERABLES Fin al Result Performing Organization Address [facility] Co de Phone Number [facility] [address] [place] [address] * IgG subclasses (02/16/2025 1:22 PM EDT) IGG 1 682 341 - 894 mg/dL [facility] [address] IGG 2 430 171 - 632 mg/dl [facility] [address] IGG 3 33.4 18.4 - 106.0 mg/dl [facility] [address] IGG 4 7.5 2.4 - 121.0 mg/dl [facility] [address] TOTAL IGG 1,195 767 - 1,590 mg/dl [facility] [place] Blood 02/16/2025 1:22 PM EDT 02/16/2025 1:35 PM EDT Marv Yao [facility] LAB BLOOD ORDERABLES Final R esult Performing Organization Address [facility] Co de Phone Number [facility]/PATH [address] [place] [address] * CBC and differential (02/16/2025 1:22 PM EDT) WBC 6.17 4.00 - 11.00 K/uL [facility] RBC 4.72 4.00 - 5.20 M/uL [facility] HGB 14.5 12.0 - 16.0 g/dL [facility] HCT 42.9 36.0 - 46.0 % [facility] PLT 272 150 - 450 K/uL [facility] MCV 90.9 80.0 - 100.0 fL [facility] MCH 30.7 27.0 - 31.0 pg [facility] MCHC 33.8 32.0 - 36.0 g/dL [facility] RDW 12.4 11.5 - 14.5 % [facility] MPV 10.1 8.4 - 12.0 fL [facility] NRBC 0.00 0.00 /100 WBCs [facility] ABSOLUTE NRBC 0.00 0.00 K/uL [facility] DIFF METHOD Auto [facility] NEUTS 62.0 48.0 - 76.0 % [facility] LYMPHS 28.4 18.0 - 41.0 % [facility] MONOS 6.2 4.0 - 11.0 % [facility] EOS 2.4 0.0 - 5.0 % [facility] BASOS 0.8 0.0 - 1.5 % [facility] Granulocytes, immature (%) 0.2 0.0 - 0.9 % [facility] ABSOLUTE NEUTS 3.83 1.92 - 7.60 K/uL [facility] ABSOLUTE LYMPHS 1.75 0.72 - 4.10 K/uL [facility] ABSOLUTE MONOS 0.38 0.16 - 1.10 K/uL [facility] ABSOLUTE EOS 0.15 0.00 - 0.50 K/uL [facility] ABSOLUTE BASOS 0.05 0.00 - 0.15 K/uL [facility] Granulocytes, immature 0.01 0.00 - 0.09 K/uL [facility] Blood 02/16/2025 1:22 PM EDT 02/16/2025 1:34 PM EDT us Marv Hill DO LAB BLOOD BKR ORDERABLES Fin al Result [facility] [address] [place] [address] * (ABNORMAL) Lipid panel (05/25/2017 12:35 PM EST) HDL 57 mg/dL [facility] Comment: Interpretation: Risk Level Females Decreased >55mg/dL Average 50-55 mg/dL Increased <50 mg/dL CHOLESTEROL 218 0 - 240 mg/dL [facility] TRIGLYCERIDES 250(H) 30 - 160 mg/dL [facility] LDL 111 50 - 129 mg/dL [facility] Comment: LDL levels in terms of risk for coronary heart disease: <100 mg/dL: Optimal 100-129 mg/dL: Near or above optimal 130-159 mg/dL: Borderline high 160-189 mg/dL: High >190 mg/dL: Very High CARDIAC RISK RATIO 3.8 3.3 - 4.4 C [facility] Blood 05/25/2017 12:3 5 PM EST 05/25/2017 12:37 PM EST us Pj Maradiaga MD LAB BLOOD BKR ORDERABLES Final Result Performing Organization Address City/State/[facility] Co de Phone Number [facility] [address] [place] [address] * OUTSIDE HIV TEST (07/30/2009) HIV - External Neg (patient reported) us Historical Provider LAB BLOOD ORDERABLES Alpa l Result from Last 3 Months or Most Recently Relevant to Health Maintenance Insurance [employer] [address] [place], [place] [id number] POS O [place] [address] [place] [id number] POS [facility] [address] [address] HMO POS [facility] HMO POS [place] [employer] POS Care Teams Patient Access Specialist Relationship Specialty Start Date End Date Ct Anderson MD [address] [place] [id number] PCP - General Internal Medicine 10/11/20 Additional Source Comments The information contained in this document represents components of the legal health record. It is not the complete legal health record.[facility]
== END 2025-04-02 15:21 | disposition home or self-care (01) ==
LOC: HO.HGI 14:35
PROVIDERS: PCP Internal Medicine; Visit Provider Internal Medicine Gastroenterology
DX: R10.9 Unspecified abdominal pain (principal)
CPT/HCPCS: 99213